=== PATIENT | female | born 1960 | race Caucasian/White ===

== ENCOUNTER 2018-03-07 16:50 | Inpatient (IN) ==
[2018-03-07] MEDS ORDERED: IOPAMIDOL 100 ML BOTTLE IV ONE (16:51)
[2018-03-07] MEDS ORDERED: 0.9 % SODIUM CHLORIDE 1,000 ML IV ONE (17:38)
[2018-03-07 17:57] LABS: Mean Cell Volume 93.8 fL (80.0-100.0); Mean Corpuscular HGB Conc 34.1 g/dL (31.0-36.0); Platelet Count 195 K/mcL (140-440); RBC 4.45 M/mcL (4.00-5.20); Red Cell Distribution Width 13.7 % (11.5-14.5)
[2018-03-07 18:16] LABS: ALT/SGPT 16 U/l (0-40); Albumin 4.4 gm/dL (3.2-5.2); Albumin/Globulin Ratio 1.4 (1.0-2.3); Alkaline Phosphatase 77 U/L (39-117); Blood Urea Nitrogen 11 mg/dl (6-20)
[2018-03-07] MEDS ORDERED: ACETAMINOPHEN 1,000 MG/100 ML BOTTLE IV ONE (18:57)
[2018-03-07] MEDS ORDERED: metroNIDAZOLE 500 MG/100 ML BAG IV ONE (19:00)
[2018-03-07 19:06] LABS: Band Neutrophils % 4 % (0-10); Dohle Bodies FEW (NONE SEEN); Lymphocytes % 4 % (15-49); Monocytes % (Manual) 7 % (1-12); Platelet Estimate NORMAL (NORMAL); RBC Morphology NORMAL (NORMAL); Segmented Neutrophils % 85 % (38-78)
[2018-03-07] MEDS ORDERED: CIPROFLOXACIN 400 MG/200 ML BAG IV ONE (19:11)
[2018-03-07] MEDS ORDERED: ONDANSETRON 4 MG/2 ML VIAL IV PRN (19:14)
[2018-03-07] MEDS ORDERED: metroNIDAZOLE 500 MG/100 ML BAG IV SCH (19:15)
--- NOTE | 2018-03-07 19:21 | Emergency Department Note ---
Abdominal Pain HPI - General Chief Complaint: Abdominal Pain Stated Complaint: Abdominal pain Time Seen by Provider: 03/07/18 17:17 Source: patient Mode of arrival: ambulatory Limitations: no limitations - History of Present Illness HPI Narrative: 57-year-old female presents with lower abdominal pain. Fairly severe. Onset 02 02 this morning. It woke her up and she has not been able to sleep since. She went to [facility] and they are worried about appendicitis so they sent her here. She has had a fever of up to 102 today at home. Did take a laxative to help her have a bowel movement and thought that would give her relief but it has not changed. She is also had chills all day. Positive nausea and decreased appetite. No vomiting. No diarrhea. She has not had anything like this previously. No cough or cold symptoms. No rash. No dysuria or frequency. Nothing seems to make the pain better or worse, it is constant. The blood in her stools or dark tarry stools. - Related Data Home Medications Medication Instructions Recorded Confirmed cholecalciferol (vitamin D3) 5,000 5,000 unit PO QDAY tab 08/20/15 03/07/18 unit tablet diphenhydrAMINE HCL [Benadryl] 50 mg PO DAILYP PRN 09/28/16 03/07/18 Previous Rx's Medication Instructions Recorded hydroxyzine HCl 50 mg tablet 50 mg PO TID-QID PRN #60 tab 05/06/15 diclofenac sodium 75 mg 75 mg PO BID 90 Days #180 tab 05/25/16 tablet,delayed release Aspirin [Ecotrin] 325 mg PO BID #60 tab.ec 10/07/16 HYDROmorphone [Dilaudid] 2 - 4 mg PO Q4-6HP PRN #60 tab 10/07/16 furosemide 20 mg tablet 20 mg PO QDAY #30 tab 12/26/16 risperidone 1 mg tablet 1 mg PO .COMPLEX #60 tab 12/19/17 venlafaxine 75 mg tablet 150 mg PO BID 90 Days #360 tab 12/19/17 lorazepam 0.5 mg tablet 0.5 mg PO QDAY PRN #30 tab 12/28/17 lisinopril 20 mg tablet 20 mg PO QDAY 90 Days #90 tab 01/15/18 trazodone 150 mg tablet 150 mg PO HS #30 tab 02/26/18 Allergies Allergy/AdvReac Type Severity Reaction Status Date / Time acetaminophen [From Vicodin] AdvReac Mild Nausea Verified 03/07/18 19:04 hydrocodone [From Vicodin] AdvReac Mild Nausea Verified 03/07/18 19:04 anti-emetic AdvReac Intermediate Confusion Uncoded 03/07/18 15:48 Review of Systems All systems ED: reviewed and negative except as stated. 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) Depression, major (Chronic 05/21/14) Hypertension, essential (Chronic) Dysfunctional gallbladder (Chronic) Breast cancer (Chronic) Arthritis (Chronic) Anxiety disorder (Chronic) Generalized abdominal or pelvic swelling or mass or lump (Chronic 05/21/14) Past Surgical History (Last Reviewed 03/07/18 @ 15:59 by CLAUDETTE Roque) Total knee replacement status (Acute) History of kidney surgery (Chronic) H/O bilateral mastectomy (Chronic) History of cholecystectomy (Chronic) H/O colonoscopy (Chronic 06/12/14) History of bilateral carpal tunnel release (Chronic) Medical history: Reports: cancer (breast), hypertension, osteoporosis, renal disease Surgical history ED: Reports: other (She did have muscles removed from her abdomen during her breast reconstruction surgery) Psychiatric history: Reports: anxiety, depression - Social History Smoking status: Never smoker Alcohol use: Reports: Occasionally Drug use: Reports: none Physical Exam Limitations: no limitations General appearance: alert, in no apparent distress, other (Flushed) Head: atraumatic, normocephalic, normal inspection Eye: Present: normal appearance. Absent: conjunctival injection ENT: normal exam, mucous membranes moist, TM's normal bilaterally, normal external ear exam Neck: Present: normal inspection, trachea midline. Absent: tenderness, lymphadenopathy Chest: Present: normal inspection, symmetric chest wall rise Respiratory: Present: normal lung sounds bilaterally. Absent: respiratory distress, wheezes, accessory muscle use Cardiovascular: Present: regular rate, normal heart sounds Abdominal: Present: soft, tenderness (He is lower abdominal tenderness. Seems to be a little bit worse right lower quadrant and periumbilical.), normal bowel sounds, other (Obese). Absent: distention, guarding, rebound, mass Extremities: Present: normal inspection. Absent: pedal edema Neurological: Present: alert, oriented X3 Psychiatric: Present: normal affect, normal mood Skin: Present: warm, dry, intact, normal color. Absent: rash Course Course Narrative: I did speak with Dr. Garcia, surgeon on-call at 1900 who agrees to see and admit the patient. I will put in holding orders until he is able to see her. She is updated and is agreeable to stay Vital Signs Temperature 99.7 F H 03/07/18 16:51 Pulse Rate 126 H 03/07/18 16:51 Respiratory Rate 20 03/07/18 16:51 Blood Pressure 135/82 03/07/18 16:51 Pulse Oximetry (%) 95 03/07/18 16:51 Temperature 101.9 F H 03/07/18 18:56 Pulse Rate 111 H 03/07/18 18:46 Respiratory Rate 25 H 03/07/18 18:46 Blood Pressure 156/92 03/07/18 18:46 Pulse Oximetry (%) 95 03/07/18 18:46 Abdominal Pain - Lab Data Lab results reviewed: Yes I reviewed the patient's lab results. Result diagrams: 03/07/18 17:24 03/07/18 17:24 Lab Results 03/07/18 03/07/18 03/07/18 Range/Units 17:24 17:24 17:24 WBC 15.4 H (4.5-11.0) K/mcL RBC 4.45 (4.00-5.20) M/mcL Hgb 14.3 (12.0-15.0) g/dL Hct 41.8 (36.0-48.0) % POC Hct (36.0-48.0) % MCV 93.8 (80.0-100.0) fL MCH 32.0 (26.0-34.0) pg MCHC 34.1 (31.0-36.0) g/dL RDW 13.7 (11.5-14.5) % Plt Count 195 (140-440) K/mcL MPV 8.2 (7.4-10.4) fL Total Counted 200 Seg Neutrophils % 85 H (38-78) % Band Neutrophils % 4 (0-10) % Lymphocytes % 4 L (15-49) % Monocytes % (Manual) 7 (1-12) % WBC Morphology Abnorm A (NORMAL) Reactive Lymphocytes 2 (0-2) % Dohle Bodies Few A (NONE SEEN) Platelet Estimate Normal (NORMAL) RBC Morphology Normal (NORMAL) VBG Lactic Acid 2.4 H (0.5-2.2) mmol/L POC Sodium (133-145) mmol/L Sodium 135 (133-145) mmol/L POC Potassium (3.3-5.1) mmol/L Potassium 4.0 (3.3-5.1) mmol/L POC Chloride (96-108) mmol/L Chloride 96 (96-108) mmol/L Carbon Dioxide 27 (22-30) mmol/L POC Total CO2 (22-30) mmol/L Anion Gap 12.0 (8-16) POC BUN (6-20) mg/dl BUN 11 (6-20) mg/dl Creatinine 0.9 (0.6-1.1) mg/dl POC Creatinine (0.6-1.1) mg/dl GFR Calculation 71 Glucose 132 H (70-105) mg/dL POC Glucose (70-105) mg/dL Calcium 9.3 (8.6-10.4) mg/dl POC WB Ioniz Calcium (1.16-1.32) mmol/L Total Bilirubin 0.7 (0.0-1.0) mg/dL AST 14 (0-37) U/l ALT 16 (0-40) U/l Alkaline Phosphatase 77 (39-117) U/L Total Protein 7.6 (5.9-8.4) gm/dL Albumin 4.4 (3.2-5.2) gm/dL Globulin 3.2 (2.2-3.7) gm/dL Albumin/Globulin Ratio 1.4 (1.0-2.3) 03/07/18 Range/Units 17:44 WBC (4.5-11.0) K/mcL RBC (4.00-5.20) M/mcL Hgb (12.0-15.0) g/dL Hct (36.0-48.0) % POC Hct 41.0 (36.0-48.0) % MCV (80.0-100.0) fL MCH (26.0-34.0) pg MCHC (31.0-36.0) g/dL RDW (11.5-14.5) % Plt Count (140-440) K/mcL MPV (7.4-10.4) fL Total Counted Seg Neutrophils % (38-78) % Band Neutrophils % (0-10) % Lymphocytes % (15-49) % Monocytes % (Manual) (1-12) % WBC Morphology (NORMAL) Reactive Lymphocytes (0-2) % Dohle Bodies (NONE SEEN) Platelet Estimate (NORMAL) RBC Morphology (NORMAL) VBG Lactic Acid (0.5-2.2) mmol/L POC Sodium 137 (133-145) mmol/L Sodium (133-145) mmol/L POC Potassium 4.2 (3.3-5.1) mmol/L Potassium (3.3-5.1) mmol/L POC Chloride 100 (96-108) mmol/L Chloride (96-108) mmol/L Carbon Dioxide (22-30) mmol/L POC Total CO2 27 (22-30) mmol/L Anion Gap (8-16) POC BUN 11 (6-20) mg/dl BUN (6-20) mg/dl Creatinine (0.6-1.1) mg/dl POC Creatinine 0.9 (0.6-1.1) mg/dl GFR Calculation Glucose (70-105) mg/dL POC Glucose 143 H (70-105) mg/dL Calcium (8.6-10.4) mg/dl POC WB Ioniz Calcium 1.09 L (1.16-1.32) mmol/L Total Bilirubin (0.0-1.0) mg/dL AST (0-37) U/l ALT (0-40) U/l Alkaline Phosphatase (39-117) U/L Total Protein (5.9-8.4) gm/dL Albumin (3.2-5.2) gm/dL Globulin (2.2-3.7) gm/dL Albumin/Globulin Ratio (1.0-2.3) - Radiology Data Radiology results reviewed: Yes I reviewed the patient's radiology results. Disposition Pt seen by PANEL SAW OPERATOR/PA only: Yes Clinical Impression: Diverticulitis, Fever, Abdominal pain Disposition: Xfer As Inpt ([facility]) Condition: Fair Referrals: Wilfredo Munroe DO [Primary Care Provider] - Justin Garcia MD [Physician] - Time of Disposition: 19:24
[2018-03-07] MEDS ORDERED: VENLAFAXINE 150 MG CAP.XL.24H PO SCH (21:00)
[2018-03-07] MEDS ORDERED: traZODone HCL 150 MG TABLET PO SCH (21:00)
[2018-03-07] MEDS: 0.9 % SODIUM CHLORIDE 1,000 ML IV SCH (21:15)
[2018-03-07] MEDS: CIPROFLOXACIN 400 MG/200 ML BAG IV SCH (21:34)
[2018-03-07] MEDS ORDERED: traZODone HCL 50 MG TABLET ONE (22:10)
[2018-03-07] MEDS: traZODone HCL 150 MG TABLET PO SCH (22:15)
[2018-03-08] MEDS: HYDROmorphone 2 MG/ML VIAL IV PRN ×3 (01:39→13:37)
[2018-03-08] MEDS: 0.9 % SODIUM CHLORIDE 1,000 ML IV SCH ×4 (04:38→21:46)
--- NOTE | 2018-03-08 08:07 | Cat Scan Report ---
CLINICAL INFORMATION: Reason for Exam:no oral contrast, possible appy, rlq ab pain, fever COMPARISON: None. TECHNIQUE: Following injection of intravenous contrast the patient was scanned during the portal venous phase from the diaphragm through the symphysis pubis. Sagittal and coronal reformats were created.. FINDINGS: The liver and spleen are normal in size and homogeneous. The gallbladder has been removed. The bile ducts are nondilated. The pancreas is normal without evidence of a mass or inflammation. The adrenals are normal symmetric. A 1.3 x 1.3 cm irregularly shaped calculus is present in the lower pole infundibulum of the right kidney. This is not causing hydronephrosis. The right renal pelvis is larger than the left and there are clips at the level of the ureteropelvic junction area there couple small cortical cysts. Mild proximal scarring is present in the right kidney, most notable in the upper pole. The ureters are decompressed. There is a seroma in the midline of the upper abdominal wall, above the level of the umbilicus. It measures 2.6 x 7.6 cm. Numerous diverticula are present in the descending and sigmoid colon. There is acute diverticulitis in the mid sigmoid colon, slightly posterior and superior to the uterus. There is significant stranding of surrounding fat and a small amount of free fluid. No abscess is seen and there is no free intraperitoneal air. No abnormalities detected in the uterus or adnexa. The appendix is noninflamed. No abnormality is seen within the unopacified urinary bladder. Postoperative changes are present following prior spinal fusion at L4-5. IMPRESSION: Acute diverticulitis of the sigmoid colon Fluid collection in the anterior abdominal wall. This is probably a seroma but could be a hematoma. This is likely an abscess. Interpreted and Authenticated by: [employer] 03/08/18
[2018-03-08] MEDS ORDERED: VENLAFAXINE 150 MG CAP.XL.24H PO SCH (09:00)
[2018-03-08] MEDS: VENLAFAXINE 75 MG TABLET PO SCH ×2 (09:19→20:00)
[2018-03-08] MEDS: CIPROFLOXACIN 400 MG/200 ML BAG IV SCH (10:50)
[2018-03-08] MEDS ORDERED: ACETAMINOPHEN 1,000 MG/100 ML BOTTLE IV PRN (14:40)
[2018-03-08] MEDS ORDERED: LORazepam 0.5 MG TABLET PO PRN (17:30)
--- NOTE | 2018-03-08 17:34 | General Surg History&Physical ---
History of Present Illness Patient information: Note initiated : 03/08/18 at 5:32 pm Service Date, if different from initiated Date: [] Patient: Yen Patrick a 57 y/o F admitted on 03/07/18 for Abdominal Pain, Fever, Diverticulitis. Chief Complaint: [] HPI: Ms. Johanna Valente is a 57 year old F who was admitted with diverticulitis. She developed acute onset of severe pelvic pain about 3:45 AM on Monday. She took a laxative and suppository because of possible constipation but the pain persisted. She developed nausea but did not have vomiting. She later developed multiple liquid stools. She did not notice any blood. She was finally seen in minor care because of the pain and was transferred to the emergency room. CT of the abdomen showed diverticulitis. She has not had a prior episode. She is admitted and will be treated with antibiotics. Review of Systems - Gastrointestinal abdominal pain, bloating, change in bowel habits, diarrhea, loose stools, nausea - Genitourinary Genitourinary: difficulty voiding - Musculoskeletal joint swelling - Psychiatric anxiety, depression - Hematologic/Lymphatic no easy bleeding, no easy bruising, no lymphadenopathy - Allergic/Immunologic no tongue swelling, no throat swelling, no uticaria, no wheezing, no lip swelling Past History Past medical history: Right breast cancer Hypertension; anxiety with depression Past surgical history: Bilateral mastectomy with TRAM flap reconstruction Bilateral carpal tunnel release Laparoscopic cholecystectomy Bilateral total knee arthroplasty Lower lumbar laminectomy with fusion Right kidney reconstruction Past family history: Mother age 48 with metastatic colon cancer; she also had breast cancer Sister age 54 with coronary artery disease status post MD Brother age 51 alive and well Past social history: Medically retired Never tobacco use Denies drug use Drinks 4 glasses of wine twice weekly Medications and Allergies Home Medications Medication Instructions Recorded Confirmed Type cholecalciferol (vitamin D3) 5,000 5,000 unit PO QDAY tab 08/20/15 03/07/18 History unit tablet diphenhydrAMINE HCL [Benadryl] 50 mg PO DAILYP PRN 09/28/16 03/07/18 History venlafaxine 75 mg tablet 150 mg PO BID 90 Days #360 tab 12/19/17 03/07/18 Rx lorazepam 0.5 mg tablet 0.5 mg PO QDAY PRN #30 tab 12/28/17 03/07/18 Rx lisinopril 20 mg tablet 20 mg PO QDAY 90 Days #90 tab 01/15/18 03/07/18 Rx trazodone 150 mg tablet 150 mg PO HS #30 tab 02/26/18 03/07/18 Rx risperiDONE [Risperidone] 2 mg PO DAILY 03/07/18 03/07/18 History Ciprofloxacin [Cipro] 500 mg PO BID #30 tab 03/11/18 Rx metroNIDAZOLE [Metronidazole] 500 mg PO Q6 #60 tab 03/11/18 Rx Allergies Allergy/AdvReac Type Severity Reaction Status Date / Time anti-emetic AdvReac Mild Confusion Uncoded 03/07/18 20:36 Exam Temp Pulse Resp BP Pulse Ox 101.5 F H 105 H 20 115/67 92 03/08/18 13:38 03/08/18 11:41 03/08/18 11:41 03/08/18 11:41 03/08/18 11:41 - General physical appearance well developed, well nourished, no distress - Eyes PERRL, normal ocular movement - ENT normal pinna, normal nares, normal mucosa, no hearing loss, no congestion - Head Head exam IM: Present: atraumatic, normocephalic - Neck no masses, no bruits, trachea midline, no lymphadectomy, no venous distension - Cardiovascular Cardiovascular exam IM: Present: normal rate and rhythm - Respiratory normal expansion, normal respiratory effort, clear to percussion, clear to auscultation - Abdomen Abdomen: Present: soft, tender (Tenderness to palpation entire hypogastrium and left lower quadrant; no palpable mass), bowel sounds, guarding. Absent: masses Hernia: Present: none - Genitourinary Present: normal external genitalia - Integumentary Present: no rash, no growths, no abnormal pigmentation - Neurologic Present: normal coordination, normal sensation - Musculoskeletal Present: normal gait, normal posture - Psychiatric Present: oriented to time, oriented to person, oriented to place, speech is normal, memory intact Assessment and Plan (1) Diverticulitis Zosyn 3.375 g IV every 6 Flagyl 500 mg IV every 6 N.p.o. except for ice chips Follow-up CT of abdomen and pelvis with IV contrast in 4 days Status: Acute (2) Depression, major Continue home medications to prevent withdrawal Status: Chronic Qualifiers: (3) Hypertension, essential Hold home medications until blood pressure is stabilized Status: Chronic Comment: BP well controlled with lisinopril 20mg once daily. (4) Anxiety disorder Status: Chronic Comment: 1990 Qualifiers: Anxiety disorder type: generalized anxiety disorder Qualified Code(s): F41.1 - Generalized anxiety disorder
[2018-03-08] MEDS: risperiDONE 1 MG TABLET PO SCH (17:54)
[2018-03-08] MEDS: metroNIDAZOLE 500 MG/100 ML BAG IV SCH (18:07)
[2018-03-08] MEDS: PIPERACILLIN SODIUM/TAZOBACTAM 3.375 GM in DEXTROSE 5% IN WATER 50 ML IV SCH (19:30)
[2018-03-08] MEDS: traZODone HCL 150 MG TABLET PO SCH (20:00)
[2018-03-08] MEDS ORDERED: traZODone HCL 150 MG TABLET PO SCH (21:00)
[2018-03-08] MEDS ORDERED: VENLAFAXINE 75 MG TABLET PO SCH (21:00)
[2018-03-09] MEDS: PIPERACILLIN SODIUM/TAZOBACTAM 3.375 GM in DEXTROSE 5% IN WATER 50 ML IV SCH ×5 (00:46→23:47)
[2018-03-09] MEDS: metroNIDAZOLE 500 MG/100 ML BAG IV SCH ×4 (01:51→19:35)
[2018-03-09 06:25] LABS: Mean Corpuscular HGB Conc 33.3 g/dL (31.0-36.0); Mean Corpuscular Hemoglobin 31.6 pg (26.0-34.0); Platelet Count 156 K/mcL (140-440); RBC 3.54 M/mcL (4.00-5.20); Red Cell Distribution Width 13.5 % (11.5-14.5)
[2018-03-09 06:51] LABS: ALT/SGPT 12 U/l (0-40); Albumin 3.1 gm/dL (3.2-5.2); Alkaline Phosphatase 80 U/L (39-117); Bilirubin,Direct 0.3 mg/dL (0.0-0.3); Blood Urea Nitrogen 8 mg/dl (6-20); Gamma Glutamyl Transpeptidase 58 U/L (5-36); Uric Acid 4.3 mg/dL (2.5-8.0)
[2018-03-09] MEDS: 0.9 % SODIUM CHLORIDE 1,000 ML IV SCH ×3 (07:17→21:43)
[2018-03-09] MEDS: HYDROmorphone 2 MG/ML VIAL IV PRN ×2 (07:38→18:38)
[2018-03-09 08:23] LABS: Band Neutrophils % 2 % (0-10); Eosinophils % (Manual) 2 % (0-7); Lymphocytes % 11 % (15-49); Monocytes % (Manual) 7 % (1-12); Platelet Estimate NORMAL (NORMAL); RBC Morphology NORMAL (NORMAL); Segmented Neutrophils % 78 % (38-78)
[2018-03-09] MEDS ORDERED: risperiDONE 1 MG TABLET PO SCH (09:00)
[2018-03-09] MEDS: VENLAFAXINE 75 MG TABLET PO SCH ×2 (09:24→20:44)
[2018-03-09] MEDS: risperiDONE 1 MG TABLET PO SCH (09:25)
--- NOTE | 2018-03-09 12:30 | General Surgery Progress Note ---
Subjective Patient reports: feels better, pain is less, flatus, no bowel movement, afebrile Narrative: Note initiated : 03/09/18 at 12:28 pm Service Date, if different from initiated Date: [] Patient: Yen Patrick 57 y/o F admitted on 03/07/18 for Abdominal Pain, Fever, Diverticulitis. Chief Complaint: [Patient is doing better. She did not have any elevation of temperature last evening. Her lower abdominal pain persists but is much less intense. She has had flatus but no bowel movement her white blood count is 10.1. Her serum lactate is down 0.7.] Objective Temp Pulse Resp BP Pulse Ox 98.4 F 94 H 14 124/80 92 03/09/18 11:27 03/09/18 11:27 03/09/18 11:27 03/09/18 11:27 03/09/18 11:27 - Additional Data Intake & Output - Last 24 hours: Intake & Output 03/07/18 03/08/18 03/09/18 03/10/18 05:59 05:59 05:59 05:59 Intake Total 2200 / 2200 3580 / 3580 50 / 50 Output Total 1000 / 1000 2800 / 2800 850 / 850 Balance 1200 / 1200 780 / 780 -800 / -800 Weight 262 lb 8 oz 264 lb - General physical appearance well developed, well nourished, no distress - Eyes PERRL, normal ocular movement - ENT normal pinna, normal nares, normal mucosa, no hearing loss, no congestion - Neck no masses, no bruits, trachea midline, no lymphadectomy, no venous distension - Respiratory normal expansion, normal respiratory effort, clear to percussion, clear to auscultation - Cardiovascular Cardiovascular exam: Present: normal rate and rhythm, RRR, +S1, +S2. Absent: JVD - Abdomen tender (Moderate suprapubic tenderness and left lower quadrant tenderness; no mass and no guarding), bowel sounds (present), surgical scars (none), masses ( none) - Integumentary no rash, no growths, no abnormal pigmentation - Neurologic normal coordination, normal sensation - Musculoskeletal normal gait, normal posture - Psychiatric oriented to time, oriented to person, oriented to place, speech is normal, memory intact - Labs 03/09/18 05:00 03/09/18 05:00 Diabetes panel 03/09/18 Range/Units 05:00 Sodium 140 (133-145) mmol/L Potassium 4.0 (3.3-5.1) mmol/L Chloride 104 (96-108) mmol/L Carbon Dioxide 24 (22-30) mmol/L BUN 8 (6-20) mg/dl Creatinine 0.9 (0.6-1.1) mg/dl Glucose 100 (70-105) mg/dL Calcium 8.3 L (8.6-10.4) mg/dl AST 12 (0-37) U/l ALT 12 (0-40) U/l Alkaline Phosphatase 80 (39-117) U/L Total Protein 6.1 (5.9-8.4) gm/dL Albumin 3.1 L (3.2-5.2) gm/dL Triglycerides 52 (<150) mg/dl Calcium panel 03/09/18 Range/Units 05:00 Calcium 8.3 L (8.6-10.4) mg/dl Phosphorus 2.0 L (2.7-4.5) mg/dL Albumin 3.1 L (3.2-5.2) gm/dL Pituitary panel 03/09/18 Range/Units 05:00 Sodium 140 (133-145) mmol/L Potassium 4.0 (3.3-5.1) mmol/L Chloride 104 (96-108) mmol/L Carbon Dioxide 24 (22-30) mmol/L BUN 8 (6-20) mg/dl Creatinine 0.9 (0.6-1.1) mg/dl Glucose 100 (70-105) mg/dL Calcium 8.3 L (8.6-10.4) mg/dl Adrenal panel 03/09/18 Range/Units 05:00 Sodium 140 (133-145) mmol/L Potassium 4.0 (3.3-5.1) mmol/L Chloride 104 (96-108) mmol/L Carbon Dioxide 24 (22-30) mmol/L BUN 8 (6-20) mg/dl Creatinine 0.9 (0.6-1.1) mg/dl Glucose 100 (70-105) mg/dL Calcium 8.3 L (8.6-10.4) mg/dl Total Bilirubin 0.9 (0.0-1.0) mg/dL AST 12 (0-37) U/l ALT 12 (0-40) U/l Alkaline Phosphatase 80 (39-117) U/L Total Protein 6.1 (5.9-8.4) gm/dL Albumin 3.1 L (3.2-5.2) gm/dL Assessment and Plan (1) Diverticulitis Status: Acute Assessment and plan: We will continue present therapy Probable follow-up CT with contrast on Monday Start clear liquid diet Current Visit: Yes (2) Depression, major Status: Chronic Current Visit: No (3) Hypertension, essential Problem details: BP well controlled with lisinopril 20mg once daily. Status: Chronic Current Visit: No (4) Anxiety disorder Problem details: 1990 Status: Chronic Current Visit: No - Time Spent With Patient Total time spent is greater than 50% in coordination of care (as documented) at patient's floor/unit and/or counseling patient:
[2018-03-09] MEDS ORDERED: POTASSIUM PHOSPHATE 40 MEQ in DEXTROSE 5% IN WATER 500 ML IV ONE (12:32)
[2018-03-09] MEDS: traZODone HCL 150 MG TABLET PO SCH (20:44)
[2018-03-10] MEDS: metroNIDAZOLE 500 MG/100 ML BAG IV SCH ×4 (00:44→19:27)
[2018-03-10] MEDS: HYDROmorphone 2 MG/ML VIAL IV PRN ×3 (05:02→20:10)
[2018-03-10] MEDS: PIPERACILLIN SODIUM/TAZOBACTAM 3.375 GM in DEXTROSE 5% IN WATER 50 ML IV SCH ×4 (05:51→23:49)
[2018-03-10 06:07] LABS: Mean Cell Volume 94.8 fL (80.0-100.0); Mean Corpuscular HGB Conc 33.8 g/dL (31.0-36.0); Platelet Count 143 K/mcL (140-440); RBC 3.57 M/mcL (4.00-5.20); Red Cell Distribution Width 13.4 % (11.5-14.5)
[2018-03-10 06:55] LABS: ALT/SGPT 12 U/l (0-40); Albumin 3.2 gm/dL (3.2-5.2); Albumin/Globulin Ratio 1.1 (1.0-2.3); Alkaline Phosphatase 85 U/L (39-117); Bilirubin,Direct < 0.2 mg/dL (0.0-0.3); Blood Urea Nitrogen 7 mg/dl (6-20); Gamma Glutamyl Transpeptidase 76 U/L (5-36); Uric Acid 3.8 mg/dL (2.5-8.0)
[2018-03-10] MEDS: 0.9 % SODIUM CHLORIDE 1,000 ML IV SCH ×4 (07:01→23:45)
[2018-03-10 07:32] LABS: Eosinophils % (Manual) 1 % (0-7); Lymphocytes % 7 % (15-49); Monocytes % (Manual) 4 % (1-12); Myelocytes % 1 % (0-0); Platelet Estimate NORMAL (NORMAL); RBC Morphology NORMAL (NORMAL); Segmented Neutrophils % 87 % (38-78)
[2018-03-10] MEDS: VENLAFAXINE 75 MG TABLET PO SCH ×2 (10:33→20:05)
[2018-03-10] MEDS: risperiDONE 1 MG TABLET PO SCH (10:33)
[2018-03-10] MEDS ORDERED: POTASSIUM PHOSPHATE 40 MEQ in DEXTROSE 5% IN WATER 500 ML IV STA (10:42)
--- NOTE | 2018-03-10 13:51 | General Surgery Progress Note ---
Subjective Patient reports: feels better, pain is less, tolerating liquids well, flatus, no bowel movement, afebrile Narrative: Note initiated : 03/10/18 at 1:49 pm Service Date, if different from initiated Date: [] Patient: Yen Patrick 57 y/o F admitted on 03/07/18 for Abdominal Pain, Fever, Diverticulitis. Chief Complaint: [Patient continues to improve. She has much less abdominal discomfort. She denies nausea. She has had flatus but no bowel movement since . White blood count 7.1 ,hemoglobin 11.4, phosphorus 2.6.] Objective Temp Pulse Resp BP Pulse Ox 98.2 F 96 H 16 127/83 93 03/10/18 08:00 03/10/18 07:15 03/10/18 08:00 03/10/18 08:00 03/10/18 08:00 - Additional Data Intake & Output - Last 24 hours: Intake & Output 03/08/18 03/09/18 03/10/18 03/11/18 05:59 05:59 05:59 05:59 Intake Total 2200 / 2200 3580 / 3580 2329.0909 / 2329.0909 2420 / 2420 Output Total 1000 / 1000 2800 / 2800 3300 / 3300 900 / 900 Balance 1200 / 1200 780 / 780 -970.9091 / -970.9091 1520 / 1520 Weight 262 lb 8 oz 264 lb 265 lb 8 oz - General physical appearance well developed, well nourished, no distress - Eyes PERRL, normal ocular movement - ENT normal pinna, normal nares, normal mucosa, no hearing loss, no congestion - Neck no masses, no bruits, trachea midline, no lymphadectomy, no venous distension - Respiratory normal expansion, normal respiratory effort, clear to auscultation - Cardiovascular Cardiovascular exam: Present: normal rate and rhythm, RRR, +S1, +S2. Absent: JVD, tachycardia - Abdomen tender (Mild tenderness in left lower quadrant and suprapubic area; no masses felt; no guarding noted), bowel sounds (present), surgical scars (none), masses (none) - Integumentary no rash, no growths, no abnormal pigmentation - Neurologic normal coordination, normal sensation - Musculoskeletal normal gait, normal posture - Psychiatric oriented to time, oriented to person, oriented to place, speech is normal, memory intact - Labs 03/10/18 04:30 03/10/18 04:45 Diabetes panel 03/10/18 Range/Units 04:45 Sodium 141 (133-145) mmol/L Potassium 4.1 (3.3-5.1) mmol/L Chloride 105 (96-108) mmol/L Carbon Dioxide 25 (22-30) mmol/L BUN 7 (6-20) mg/dl Creatinine 0.8 (0.6-1.1) mg/dl Glucose 95 (70-105) mg/dL Calcium 8.4 L (8.6-10.4) mg/dl AST 12 (0-37) U/l ALT 12 (0-40) U/l Alkaline Phosphatase 85 (39-117) U/L Total Protein 6.2 (5.9-8.4) gm/dL Albumin 3.2 (3.2-5.2) gm/dL Triglycerides 58 (<150) mg/dl Calcium panel 03/10/18 Range/Units 04:45 Calcium 8.4 L (8.6-10.4) mg/dl Phosphorus 2.6 L (2.7-4.5) mg/dL Albumin 3.2 (3.2-5.2) gm/dL Pituitary panel 03/10/18 Range/Units 04:45 Sodium 141 (133-145) mmol/L Potassium 4.1 (3.3-5.1) mmol/L Chloride 105 (96-108) mmol/L Carbon Dioxide 25 (22-30) mmol/L BUN 7 (6-20) mg/dl Creatinine 0.8 (0.6-1.1) mg/dl Glucose 95 (70-105) mg/dL Calcium 8.4 L (8.6-10.4) mg/dl Adrenal panel 03/10/18 Range/Units 04:45 Sodium 141 (133-145) mmol/L Potassium 4.1 (3.3-5.1) mmol/L Chloride 105 (96-108) mmol/L Carbon Dioxide 25 (22-30) mmol/L BUN 7 (6-20) mg/dl Creatinine 0.8 (0.6-1.1) mg/dl Glucose 95 (70-105) mg/dL Calcium 8.4 L (8.6-10.4) mg/dl Total Bilirubin 0.6 (0.0-1.0) mg/dL AST 12 (0-37) U/l ALT 12 (0-40) U/l Alkaline Phosphatase 85 (39-117) U/L Total Protein 6.2 (5.9-8.4) gm/dL Albumin 3.2 (3.2-5.2) gm/dL Assessment and Plan (1) Diverticulitis Status: Acute Assessment and plan: We will continue present therapy follow-up CT with contrast on Monday full liquid diet Current Visit: Yes (2) Depression, major Status: Chronic Assessment and plan: Stable on home medications Current Visit: No (3) Hypertension, essential Problem details: BP well controlled with lisinopril 20mg once daily. Status: Chronic Current Visit: No (4) Anxiety disorder Problem details: 1990 Status: Chronic Assessment and plan: Stable on baseline medications Current Visit: No - Time Spent With Patient Total time spent is greater than 50% in coordination of care (as documented) at patient's floor/unit and/or counseling patient:
[2018-03-10] MEDS ORDERED: POTASSIUM PHOSPHATE 40 MEQ in DEXTROSE 5% IN WATER 500 ML IV ONE (18:00)
[2018-03-10] MEDS: traZODone HCL 150 MG TABLET PO SCH (20:06)
[2018-03-11] MEDS: metroNIDAZOLE 500 MG/100 ML BAG IV SCH ×3 (00:32→12:43)
[2018-03-11 05:49] LABS: Mean Cell Volume 93.7 fL (80.0-100.0); Mean Corpuscular HGB Conc 34.2 g/dL (31.0-36.0); Mean Corpuscular Hemoglobin 32.1 pg (26.0-34.0); Platelet Count 198 K/mcL (140-440); RBC 3.42 M/mcL (4.00-5.20); Red Cell Distribution Width 13.3 % (11.5-14.5)
[2018-03-11] MEDS: PIPERACILLIN SODIUM/TAZOBACTAM 3.375 GM in DEXTROSE 5% IN WATER 50 ML IV SCH ×2 (06:11→11:59)
[2018-03-11 06:45] LABS: Band Neutrophils % 1 % (0-10); Eosinophils % (Manual) 4 % (0-7); Lymphocytes % 18 % (15-49); Monocytes % (Manual) 8 % (1-12); Platelet Estimate NORMAL (NORMAL); RBC Morphology NORMAL (NORMAL); Segmented Neutrophils % 69 % (38-78)
[2018-03-11 07:21] LABS: ALT/SGPT 12 U/l (0-40); Albumin 3.1 gm/dL (3.2-5.2); Alkaline Phosphatase 79 U/L (39-117); Bilirubin,Direct < 0.2 mg/dL (0.0-0.3); Blood Urea Nitrogen 5 mg/dl (6-20); Gamma Glutamyl Transpeptidase 75 U/L (5-36); Uric Acid 3.5 mg/dL (2.5-8.0)
[2018-03-11] MEDS: 0.9 % SODIUM CHLORIDE 1,000 ML IV SCH ×2 (07:41→14:26)
[2018-03-11] MEDS: risperiDONE 1 MG TABLET PO SCH (09:29)
[2018-03-11] MEDS: VENLAFAXINE 75 MG TABLET PO SCH (09:29)
--- NOTE | 2018-03-11 10:58 | Cat Scan Report ---
CLINICAL INFORMATION: Reason for Exam:Follow-up of sigmoid diverticulitis COMPARISON: 03/07/18 TECHNIQUE: Following oral contrast and the injection of intravenous contrast the patient was scanned during the portal venous phase from the diaphragm through the symphysis pubis. Sagittal and coronal reformats were created.. FINDINGS: The liver, spleen pancreas and adrenals are normal. There is a 1.3 cm calculus in the lower pole the right kidney. Left kidney is normal. A stable seroma or subacute hematoma is present in the midline of the anterior abdominal wall. There is acute diverticulitis of the distal sigmoid colon. The greatest inflammation is posterior to the uterus and contiguous with the cervix. There is no evidence of perforation and no abscess has formed. The small amount of free fluid seen in this location on the prior study has now nearly completely resolved. No bowel obstruction is present. Oral contrast passed through this inflamed segment of colon into the rectum without obstruction. IMPRESSION: Acute diverticulitis of the distal sigmoid colon. There has been slight improvement compared with recent study Interpreted and Authenticated by: [employer] 03/11/18
[2018-03-11] MEDS ORDERED: IOPAMIDOL 100 ML BOTTLE IV ONE (12:38)
--- NOTE | 2018-03-11 13:04 | Discharge Summary ---
Providers - Providers Patient information: Note initiated : 03/11/18 at 1:04 pm Service Date, if different from initiated Date: [] Patient: Yen Patrick 57 y/o F admitted on 03/07/18 for Abdominal Pain, Fever, Diverticulitis. Chief Complaint: [] Date of admission: 03/07/18 Discharge date: 03/11/18 Attending physician: Justin Garcia Hospitalization Hospital course: 57-year-old female who developed a pelvic pain about 3:45 AM on 07 March. Because of the fullness she felt like she was constipated so she took a suppository and laxative but the pain persisted. She developed nausea but no vomiting. She later had liquid stool. She was seen in the [facility] care facility and transferred to the emergency room where CT showed diverticulitis. She has not had previous episodes. She was admitted with acute diverticulitis. She has been treated and has gradually improved. Her white blood count returned to normal. She started having liquid bowel movements. Follow-up CT shows improvement in the diverticulitis and resolution of the free fluid that was present. She is stable now except for mild discomfort and is discharged home in satisfactory condition. Discharge diagnosis: Acute diverticulitis Secondary discharge diagnosis: Hypertension Anxiety with depression Right breast carcinoma status post bilateral mastectomy with TRAM flaps Reason for admission: Acute diverticulitis Pertinent studies/significant findings: CT of abdomen and pelvis with contrast 2 Complications: None Exam Temp Pulse Resp BP Pulse Ox 98.1 F 71 16 133/81 90 03/11/18 12:00 03/11/18 04:00 03/11/18 12:00 03/11/18 12:00 03/11/18 12:00 - General physical appearance well developed, well nourished, no distress - Eyes PERRL, normal ocular movement - ENT normal pinna, normal nares, normal mucosa, no hearing loss, no congestion - Head Head exam IM: Present: atraumatic, normal inspection, normocephalic - Neck no masses, no bruits, trachea midline, no lymphadectomy, no venous distension - Cardiovascular Cardiovascular exam IM: Present: normal rate and rhythm, RRR, +S1, +S2. Absent : JVD, tachycardia - Respiratory normal expansion, normal respiratory effort, clear to percussion, clear to auscultation - Abdomen Abdomen: Present: soft, tender (Mild tenderness and left lower quadrant and suprapubic area), bowel sounds Hernia: Present: none - Genitourinary Present: normal external genitalia - Integumentary Present: no rash, no growths, no abnormal pigmentation - Neurologic Present: normal coordination, normal sensation - Musculoskeletal Present: normal gait, normal posture - Psychiatric Present: oriented to time, oriented to person, oriented to place, speech is normal, memory intact Discharge Plan - Patient/Caregiver Discharge Instructions Activity: increase activity as tolerated Diet: Regular Diet Prescriptions: Ciprofloxacin [Cipro] 500 mg PO BID #30 tab metroNIDAZOLE [Metronidazole] 500 mg PO Q6 #60 tab - Follow up Plan Follow up with: Wilfredo Munroe DO [Primary Care Provider] - Justin Garcia MD [Physician] - Disposition: Home, Self-Care Prognosis: Good Rehab Potential: Good I certify that the patient requires SNF services.: No Overall status at discharge: patient is not back to baseline Pending Studies Resuscitation Status Full Code Diet Full Liquid Diet Start Sat March 10 1355 Hydromorphone HCl (Dilaudid) 1 mg IV Q2HP PRN PRN Reason: PAIN LEVEL > 6 Last Admin: 03/10/18 20:10 Dose: 1 mg Admin: 03/10/18 13:55 Dose: 1 mg Admin: 03/10/18 05:02 Dose: 1 mg Admin: 03/09/18 18:38 Dose: 1 mg Admin: 03/09/18 07:38 Dose: 1 mg Admin: 03/08/18 13:37 Dose: 0.5 mg Admin: 03/08/18 07:03 Dose: 1 mg Admin: 03/08/18 01:39 Dose: 1 mg Sodium Chloride (Sodium Chloride 0.9%) 1,000 mls @ 150 mls/hr IV .Q6H40M MOSES Last Admin: 03/11/18 07:41 Dose: Not Given Admin: 03/10/18 23:45 Dose: 150 mls/hr Admin: 03/10/18 18:31 Dose: Not Given Admin: 03/10/18 18:30 Dose: Not Given Infusion: 03/10/18 13:46 Dose: 150 mls/hr Infusion: 03/10/18 10:34 Dose: 150 mls/hr Infusion: 03/10/18 10:29 Dose: 0 mls/hr Admin: 03/10/18 07:01 Dose: 150 mls/hr Infusion: 03/10/18 06:52 Dose: 0 mls/hr Admin: 03/09/18 21:43 Dose: 150 mls/hr Admin: 03/09/18 19:36 Dose: Not Given Infusion: 03/09/18 13:58 Dose: 150 mls/hr Admin: 03/09/18 07:17 Dose: 150 mls/hr Infusion: 03/09/18 04:27 Dose: 150 mls/hr Admin: 03/08/18 21:46 Dose: 150 mls/hr Infusion: 03/08/18 21:46 Dose: 150 mls/hr Admin: 03/08/18 16:14 Dose: 150 mls/hr Infusion: 03/08/18 11:19 Dose: 0 mls/hr Admin: 03/08/18 09:06 Dose: Not Given Admin: 03/08/18 04:38 Dose: 150 mls/hr Infusion: 03/08/18 03:56 Dose: 150 mls/hr Admin: 03/07/18 21:15 Dose: 150 mls/hr Acetaminophen (Ofirmev) 1,000 mg in 100 mls @ 200 mls/hr IV Q6HP PRN PRN Reason: PAIN/FEVER > 101 Last Infusion: 03/08/18 16:29 Dose: 0 mls/hr Admin: 03/08/18 16:14 Dose: 200 mls/hr Metronidazole (Flagyl) 500 mg in 100 mls @ 100 mls/hr IV Q6H MOSES Last Admin: 03/11/18 12:43 Dose: 100 mls/hr Infusion: 03/11/18 08:40 Dose: 0 mls/hr Admin: 03/11/18 07:40 Dose: 100 mls/hr Infusion: 03/11/18 01:32 Dose: 100 mls/hr Admin: 03/11/18 00:32 Dose: 100 mls/hr Infusion: 03/10/18 20:27 Dose: 100 mls/hr Admin: 03/10/18 19:27 Dose: 100 mls/hr Infusion: 03/10/18 15:44 Dose: 0 mls/hr Admin: 03/10/18 13:56 Dose: 100 mls/hr Infusion: 03/10/18 10:34 Dose: 0 mls/hr Admin: 03/10/18 07:02 Dose: 100 mls/hr Infusion: 03/10/18 06:52 Dose: 0 mls/hr Admin: 03/10/18 00:44 Dose: 100 mls/hr Infusion: 03/09/18 20:35 Dose: 100 mls/hr Admin: 03/09/18 19:35 Dose: 100 mls/hr Admin: 03/09/18 17:03 Dose: Infusion: 03/09/18 09:30 Dose: 0 mls/hr Admin: 03/09/18 08:28 Dose: 100 mls/hr Infusion: 03/09/18 03:00 Dose: 0 mls/hr Admin: 03/09/18 01:51 Dose: 100 mls/hr Infusion: 03/08/18 19:07 Dose: 100 mls/hr Admin: 03/08/18 18:07 Dose: 100 mls/hr Piperacillin Sod/Tazobactam (Sod 3.375 gm/ Dextrose) 50 mls @ 100 mls/hr IV Q6H MOSES Last Admin: 03/11/18 11:59 Dose: 100 mls/hr Infusion: 03/11/18 06:41 Dose: 0 mls/hr Admin: 03/11/18 06:11 Dose: 100 mls/hr Infusion: 03/11/18 00:19 Dose: 100 mls/hr Admin: 03/10/18 23:49 Dose: 100 mls/hr Infusion: 03/10/18 19:08 Dose: 100 mls/hr Admin: 03/10/18 18:38 Dose: 100 mls/hr Infusion: 03/10/18 15:44 Dose: 0 mls/hr Admin: 03/10/18 13:00 Dose: 100 mls/hr Infusion: 03/10/18 06:52 Dose: 0 mls/hr Admin: 03/10/18 05:51 Dose: 100 mls/hr Infusion: 03/10/18 00:17 Dose: 100 mls/hr Admin: 03/09/18 23:47 Dose: 100 mls/hr Infusion: 03/09/18 18:26 Dose: 100 mls/hr Admin: 03/09/18 17:56 Dose: 100 mls/hr Infusion: 03/09/18 12:25 Dose: 0 mls/hr Admin: 03/09/18 11:49 Dose: 100 mls/hr Infusion: 03/09/18 06:18 Dose: 100 mls/hr Admin: 03/09/18 05:48 Dose: 100 mls/hr Infusion: 03/09/18 01:16 Dose: 100 mls/hr Admin: 03/09/18 00:46 Dose: 100 mls/hr Infusion: 03/08/18 20:00 Dose: 100 mls/hr Admin: 03/08/18 19:30 Dose: 100 mls/hr Risperidone (Risperdal) 2 mg PO DAILY [facility] Last Admin: 03/11/18 09:29 Dose: 2 mg Admin: 03/10/18 10:33 Dose: 2 mg Admin: 03/09/18 09:25 Dose: 2 mg Admin: 03/08/18 17:54 Dose: 2 mg Trazodone HCl (Desyrel) 150 mg PO HS [facility] Last Admin: 03/10/18 20:06 Dose: 150 mg Admin: 03/09/18 20:44 Dose: 150 mg Admin: 03/08/18 20:00 Dose: 150 mg Admin: 03/07/18 22:15 Dose: Not Given Venlafaxine HCl (Effexor) 150 mg PO BID [facility] Last Admin: 03/11/18 09:29 Dose: 150 mg Admin: 03/10/18 20:05 Dose: 150 mg Admin: 03/10/18 10:33 Dose: 150 mg Admin: 03/09/18 20:44 Dose: 150 mg Admin: 03/09/18 09:24 Dose: 150 mg Admin: 03/08/18 20:00 Dose: 150 mg Admin: 03/08/18 09:19 Dose: 150 mg Shift Summary 03/11/18 05:09 Shift Summary by Brandy Soares Slept well tonight. Up ad isabella to BR, voiding well. Has had 7# wt gain since admit, intake has been much more than output. Has had pain meds just once tonight. tolerating full liquid diet w/o nausea or increased pain. Hoping to go home today. Initialized on 03/11/18 05:09 - END OF NOTE
== END 2018-03-11 14:10 | disposition home or self-care (01) | DRG 392 ==
LOC: ED 16:50 → MEDSUR 20:15
PROVIDERS: ADMIT Family Medicine Adult Medicine; ATTEND Family Medicine Adult Medicine

== ENCOUNTER 2019-03-27 00:08 | Inpatient (IN) ==
[2019-03-27] MEDS ORDERED: IOPAMIDOL 100 ML BOTTLE IV ONE (00:09)
--- NOTE | 2019-03-27 01:00 | Emergency Department Note ---
Abdominal Pain HPI - General Chief Complaint: Constipation Stated Complaint: constipation and nausea Time Seen by Provider: 03/27/19 00:49 Mode of arrival: EMS - History of Present Illness HPI Narrative: This pleasant 58-year-old with a history of ovarian cancer comes with recently attempted hysterectomy and colostomy reversal but was only partially successful with single oophorectomy due to adhesions and infections per patient's report. This was Dr. Smith in [place]. Since then she has been taking senna 2 pills twice daily. She had very little stool but she was passing gas and on the was able to be discharged. She is tried to stop her pain medications when she was having slowed bowel output but has not been able to. She also has been taking milk of magnesia. She became distended and uncomfortable today with pain 5-6/10 and vomited once in the evening. She has passed a little gas this afternoon. REVIEW OF SYSTEMS: No fevers, chills, sweats No chest pain No shortness of breath Some blood in the bag. Her ostomy did swell some after surgery and with the change of the ostomy and the swelling she believes that this may have irritated causing the blood into the back. Recently has been on an antibiotic for a UTI (she told nursing staff this) Denies dizziness. - Related Data Home Medications Medication Instructions Recorded Confirmed Ergocalciferol (Vitamin D2) 5,000 unit PO DAILY 10/10/18 01/23/19 [Vitamin D2] Haloperidol [Haldol] 1 mg PO BID 10/10/18 01/23/19 Metoclopramide [Reglan] 1 - 2 tab PO Q6HP PRN 10/10/18 01/23/19 Ondansetron [Zofran ODT] 8 mg SL Q4HP PRN 10/10/18 01/23/19 Prochlorperazine Maleate 5 mg PO Q4HP PRN 10/10/18 01/23/19 [Compazine] Previous Rx's Medication Instructions Recorded lorazepam 1 mg tablet 1 mg PO QDAY PRN #90 tab 10/31/18 hydromorphone 2 mg tablet 2 mg PO Q4-6H PRN #120 tab 01/23/19 trazodone 150 mg tablet 150 mg PO DAILY #90 tab 02/01/19 metoprolol tartrate 25 mg tablet 25 mg PO BID #180 tab 02/11/19 venlafaxine 75 mg tablet 150 mg PO BID #360 tab 02/13/19 Allergies Allergy/AdvReac Type Severity Reaction Status Date / Time promethazine [From Phenergan] Allergy Unknown Unknown Verified 01/23/19 11:30 acetaminophen [From Vicodin] AdvReac Mild Nausea Verified 01/23/19 11:30 hydrocodone [From Vicodin] AdvReac Mild Nausea Verified 01/23/19 11:30 Abdominal Pain PMH - Past Medical History FOR[facility]LY [facility], 1928–1983 Narrative: Medical History (Last Updated 03/27/19 @ 02:11 by Roscoe Verdugo DO) Breast cancer (Chronic) Obesity, morbid (Chronic 05/21/14) Diabetes (Chronic) Prediabetes (Chronic 06/04/14) Hypertension, essential (Chronic) Hypoxia, sleep related (Chronic) Ovarian cancer (Chronic) Malignant pleural effusion (Chronic) Diverticular disease of large intestine with complication (Chronic) ATN (acute tubular necrosis) (Resolved) Peritoneal carcinomatosis (Chronic) Knee osteoarthritis (Chronic) Omental infarction (Resolved) Septic shock (Resolved) Constipation (Resolved) Witnessed apneic spells (Chronic) Diverticulitis (Resolved) Osteoarthritis (Chronic) Urinary, incontinence, stress female (Chronic) Tremor (Chronic 09/04/14) Sleep disorder, nonorganic (Chronic) Sciatica (Chronic 12/24/14) Nocturia (Chronic) 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) Depression, major (Chronic 05/21/14) Arthritis (Chronic) Anxiety disorder (Chronic) Fungus present in urine (Resolved) SANDY (acute kidney injury) (Resolved) Bacterial peritonitis (Resolved) Diverticulosis (Resolved) Dysfunctional gallbladder (Resolved) Generalized abdominal or pelvic swelling or mass or lump (Resolved 05/21/14) Ovarian mass, left (Resolved) Physical exam (Resolved) Pleural effusion (Resolved) Postoperative hypoxia (Resolved) Recurrent right pleural effusion (Resolved) Renal failure (Resolved) Vitamin D deficiency (Resolved) Wound infection (Resolved) Past Surgical History (Last Updated 03/27/19 @ 02:11 by Roscoe Verdugo DO) H/O bilateral mastectomy (Resolved) H/O colonoscopy (Resolved 06/12/14) History of bilateral carpal tunnel release (Resolved) History of cholecystectomy (Resolved) History of kidney surgery (Resolved) Total knee replacement status (Resolved) Family History (Last Reviewed 02/05/19 @ 08:52 by Wilfredo Munroe DO) Unknown Malignant neoplasm of breast Malignant neoplasm of colon Malignant neoplasm of lung Myocardial Infarction Malignant neoplasm of prostate Mother Cerebrovascular accident (CVA) Sister Diabetes mellitus Grandmother Diabetes mellitus Arthritis Medical history: Reports: cancer (Remote history of breast cancer, current history of ovarian cancer), hypertension, obesity, osteoporosis, renal disease, other (Diverticulitis). Denies: CAD (coronary artery disease), CVA, DVT, DM, hyperlipidemia, thyroid disease, TIA Psychiatric history: Reports: anxiety, depression Family history: Reports: other (Sister with myocardial infarction at age 54. Grandmother with myocardial infarction in her 50s. Mother with CVA at age 39.) - Social History Smoking status: Never smoker Alcohol use: Reports: Occasionally (4 glasses of wine about 2 nights a week.) Drug use: Reports: none. Denies: marijuana Physical Exam Limitations: no limitations General appearance: alert, in no apparent distress Head: atraumatic, normocephalic Eye: Present: EOMI ENT: normal oropharynx, mucous membranes moist Neck: Present: trachea midline. Absent: lymphadenopathy, thyromegaly Chest: Present: symmetric chest wall rise Respiratory: Present: normal lung sounds bilaterally. Absent: respiratory distress, wheezes, stridor, accessory muscle use, prolonged expiratory phase Cardiovascular: Present: regular rate, normal rhythm. Absent: systolic murmur, diastolic murmur Abdominal: Present: soft, distention (Moderate to severe but hard to tell due to abdominal obesity.), other (Mild weepiness in the umbilicus that appears to be more transudative and exudative, i.e. linh-pink and clear. The incision line is well approximated with zafar vertically and is without erythema, exudate, induration, elevation, or warmth.). Absent: tenderness, guarding, rebound, rigidity, organomegaly, mass Extremities: Absent: pedal edema, pretibial edema, calf tenderness Back: Absent: CVA tenderness (R), CVA tenderness (L), spinous process tenderness Neurological: Present: alert, oriented X3 Psychiatric: Present: normal affect, normal mood Skin: Present: warm, dry Course Vital Signs Temperature 99.0 F 03/27/19 00:10 Pulse Rate 121 H 03/27/19 00:10 Respiratory Rate 18 03/27/19 00:10 Blood Pressure 128/101 03/27/19 00:10 Pulse Oximetry (%) 93 03/27/19 00:10 Temperature 99.0 F 03/27/19 00:10 Pulse Rate 99 H 03/27/19 04:17 Respiratory Rate 18 03/27/19 00:10 Blood Pressure 145/83 03/27/19 04:17 Pulse Oximetry (%) 94 03/27/19 04:17 Abdominal Pain - MDM Narrative Medical decision making narrative: 12:39 AM -recent laparotomy unsuccessful for attempted hysterectomy and bilatera l oophorectomy (single oophorectomy successful) now with limited output and nausea, distention and abdominal discomfort. Also some vomiting. At risk for additional adhesions and/or bowel obstruction. We will do labs and CT scan abdomen. Labs came back with anemia of 9.8/29.7. Her CO2 is elevated at 35. CRP is 9.9. AST, ALT are 15, 16. CT scan demonstrates "new moderate grade small bowel obstruction with transition point being an enlarging parastomal hernia containing short segment of thickened incarcerated small bowel to severe gas and fluid distention of the stomach." 4:12 AM - I spoke with Dr. Farhan Garcia, [facility] who is on-call for Dr. Recinos, who is her previous surgeon for the ostomy and whom she requests me to contact. Dr. Garcia does not accept care for this patient considering having a gynecologic oncologic surgeon, etc. 4:25 AM - I had discussed these things with patient and she prefers to stay locally if possible. I will speak with Dr. Singh Garcia, general surgeon at [facility]. Dr. Garcia accepts this patient's care and request hospitalist to consult. Nasogastric tube indicated as well as some IV fluids, keep her n.p.o., pain control, nausea control. - Lab Data Lab results reviewed: Yes I reviewed the patient's lab results. Result diagrams: 03/27/19 00:59 03/27/19 00:59 Lab Results 03/27/19 03/27/19 Range/Units 00:59 00:59 WBC 8.0 (4.5-11.0) K/mcL RBC 3.17 L (4.00-5.20) M/mcL Hgb 9.8 L (12.0-15.0) g/dL Hct 29.7 L (36.0-48.0) % POC Hct 30.0 L (36.0-48.0) % MCV 93.6 (80.0-100.0) fL MCH 30.8 (26.0-34.0) pg MCHC 32.9 (31.0-36.0) g/dL RDW 17.7 H (11.5-14.5) % Plt Count 273 (140-440) K/mcL MPV 7.4 (7.4-10.4) fL Gran % 82.9 H (38.0-78.0) % Lymph % (Auto) 7.7 L (15.5-49.0) % Fountain % (Auto) 7.9 (1.0-12.0) % Eos % (Auto) 1.5 (0.0-7.0) % Baso % (Auto) 0 (0.0-2.0) % Gran # 6.6 (1.8-8.0) K/mcL Lymph # (Auto) 0.6 L (1.5-4.8) K/mcL Fountain # (Auto) 0.6 (0.1-0.9) K/mcL Eos # (Auto) 0.1 (0.0-0.7) K/mcL Baso # (Auto) 0 (0.0-0.3) K/mcL POC Sodium 137 (133-145) mmol/L Sodium 139 (133-145) mmol/L POC Potassium 3.8 (3.3-5.1) mmol/L Potassium 3.9 (3.3-5.1) mmol/L POC Chloride 90 L (96-108) mmol/L Chloride 92 L (96-108) mmol/L Carbon Dioxide 35 H (22-30) mmol/L POC Total CO2 37 H (22-30) mmol/L Anion Gap 12.0 (8-16) POC BUN 6 (6-20) mg/dl BUN 7 (6-20) mg/dl Creatinine 0.9 (0.6-1.1) mg/dl POC Creatinine 0.9 (0.6-1.1) mg/dl GFR Calculation 70 Glucose 137 H (70-105) mg/dL POC Glucose 139 H (70-105) mg/dL Calcium 9.3 (8.6-10.4) mg/dl POC WB Ioniz Calcium 1.12 L (1.16-1.32) mmol/L Total Bilirubin 0.3 (0.0-1.0) mg/dL AST 15 (0-37) U/l ALT 16 (0-40) U/l Alkaline Phosphatase 123 H (39-117) U/L C-Reactive Protein 9.9 H (0.0-0.8) mg/dl Total Protein 6.7 (5.9-8.4) gm/dL Albumin 2.9 L (3.2-5.2) gm/dL Globulin 3.8 H (2.2-3.7) gm/dL Albumin/Globulin Ratio 0.8 L (1.0-2.3) - Radiology Data Radiology results reviewed: Yes I reviewed the patient's radiology results. Disposition Pt seen by [facility]ER/PA only: No Clinical Impression: Small bowel obstruction, S/P laparotomy, Elevated carbon dioxide level Nausea & vomiting Qualifiers: Vomiting type: unspecified Vomiting Intractability: non-intractable Qualified Code(s): R11.2 - Nausea with vomiting, unspecified Disposition: Xfer As Inpt ([facility]) Condition: Fair Referrals: Wilfredo Munroe DO [Primary Care Provider] -
[2019-03-27 01:13] LABS: POC Blood Urea Nitrogen 6 mg/dl (6-20); POC CO2 37 mmol/L (22-30); POC Calcium, Ionized 1.12 mmol/L (1.16-1.32); POC Chloride 90 mmol/L (96-108); POC Creatinine 0.9 mg/dl (0.6-1.1); POC Glucose, Random 139 mg/dL (70-105); POC Potassium 3.8 mmol/L (3.3-5.1); POC Sodium 137 mmol/L (133-145)
[2019-03-27] MEDS ORDERED: ONDANSETRON 4 MG/2 ML VIAL IV ONE (01:22)
[2019-03-27 01:51] LABS: Basophils # (Auto) 0 K/mcL (0.0-0.3); Basophils % (Auto) 0 % (0.0-2.0); Eosinophils # (Auto) 0.1 K/mcL (0.0-0.7); Eosinophils % (Auto) 1.5 % (0.0-7.0); Granulocytes % (Auto) 82.9 % (38.0-78.0); Hematocrit 29.7 % (36.0-48.0); Hemoglobin 9.8 g/dL (12.0-15.0); Lymphocytes # (Auto) 0.6 K/mcL (1.5-4.8); Lymphocytes % (Auto) 7.7 % (15.5-49.0); Mean Cell Volume 93.6 fL (80.0-100.0); Mean Corpuscular HGB Conc 32.9 g/dL (31.0-36.0); Mean Platelet Volume 7.4 fL (7.4-10.4); Monocytes # (Auto) 0.6 K/mcL (0.1-0.9); Monocytes % (Auto) 7.9 % (1.0-12.0); Platelet Count 273 K/mcL (140-440); RBC 3.17 M/mcL (4.00-5.20); Red Cell Distribution Width 17.7 % (11.5-14.5)
[2019-03-27 02:11] LABS: ALT/SGPT 16 U/l (0-40); AST/SGOT 15 U/l (0-37); Albumin 2.9 gm/dL (3.2-5.2); Albumin/Globulin Ratio 0.8 (1.0-2.3); Alkaline Phosphatase 123 U/L (39-117); Bilirubin,Total 0.3 mg/dL (0.0-1.0); Blood Urea Nitrogen 7 mg/dl (6-20); C-Reactive Protein 9.9 mg/dl (0.0-0.8); Calcium 9.3 mg/dl (8.6-10.4); Carbon Dioxide 35 mmol/L (22-30); Chloride 92 mmol/L (96-108); Globulin 3.8 gm/dL (2.2-3.7); Glomerular Filtration Rate 70; Glucose 137 mg/dL (70-105); Potassium 3.9 mmol/L (3.3-5.1); Sodium 139 mmol/L (133-145)
[2019-03-27] MEDS ORDERED: PROCHLORPERAZINE 10 MG/2 ML VIAL IV ONE (03:16)
[2019-03-27] MEDS ORDERED: PROMETHAZINE 25 MG/ML VIAL IV PRN ×2 (04:54→10:50)
[2019-03-27] MEDS ORDERED: PROCHLORPERAZINE 10 MG/2 ML VIAL IV PRN (05:03)
[2019-03-27] MEDS: 0.9 % SODIUM CHLORIDE 1,000 ML IV SCH ×4 (06:30→21:12)
--- NOTE | 2019-03-27 07:06 | Cat Scan Report ---
CLINICAL INFORMATION: Five days post laparotomy. History of ovarian cancer - abdominal pain and vomiting COMPARISON: 10/20/[address] TECHNIQUE: Following enteric contrast, 80 cc of Isovue-300 were injected intravenously, and 60 seconds later, 0.625 mm helical slices were obtained from the mid heart through the subtrochanteric regions. Following reconstruction, 2.5 mm sagittal, coronal and axial reformatted images were processed and reviewed at bone, lung and soft tissue windows. Five minutes later, 0.625 mm helical slices were obtained from the mid heart through the kidneys and viewed at soft tissue windows.The exam was performed using radiation dose optimization techniques including, but not limited to, automated exposure control, adjustment of the mA and/or kV according to patient size and use of iterative reconstruction technique. FINDINGS: Lung bases show small right and tiny left pleural effusion which are new. Small pericardial effusion is also new. Visualized heart is normal in size. There is scattered atelectasis in the lower lobes - most prominent posterior right lower lobe. Images through the abdomen show minimal fatty change of the liver, but no metastases or hepatic lesions. The gallbladder is surgically absent. Intrahepatic and common bile ducts are normal caliber: CBD is 5 mm. The left kidney, both adrenal glands, spleen, pancreas and aorta are unremarkable. A double pigtail right ureteral stent is properly positioned and functional - no evidence of hydronephrosis. 15 mm stone remains in the right renal pelvis. No other renal abnormality. Images through the pelvis show the urinary bladder is collapsed and demonstrates mild wall thickening. Distal ureteral stent satisfactory position. Hysterectomy/oophorectomy, mesenteric resection, omentectomy, partial sigmoidectomy with colostomy of the descending colon in the left lower quadrant and Valdez's pouch creation noted. A large parastomal hernia hernia has increased since previous study now spanning 11 cm. The hernia contains moderate entrapped ascites and a segment of distal small bowel resulting in high-grade obstruction. The stomach and proximal small bowel are moderately dilated to the hernia reentry point. The small bowel, distal to the transition point is markedly decompressed. Residual colon and appendix are grossly normal. Small/moderate ascites as increased since previous study. Bone windows show no osseous metastases. L4-5 anterior/posterior fusion changes appreciated. Severe L3-4 central canal stenosis with moderate IV foraminal narrowing due to degeneration. IMPRESSION: 1. High-grade small bowel obstruction: A segment of small bowel is incarcerated within a left lower quadrant peristomal hernia. There is also moderate ascites within the hernia sac. [id number] ascites has increased throughout the abdomen and pelvis which could indicate third spacing related to bowel obstruction versus progression in ovarian carcinomatosis. 2. Right double pigtail ureteral stent placed since prior study successfully drains the right kidney - no evidence of hydronephrosis. A 15 mm nonobstructing stone remains in the right renal pelvis. 3. Small right and tiny left pleural fusions and small pericardial effusion - all new 4. Extensive postsurgical changes including hysterectomy/oophorectomy, mesenteric resection, omentectomy, partial sigmoidectomy with colostomy of the descending colon in the left lower quadrant and Valdez's pouch creation. 5. 10 x 1.5 in shape fluid collection in the rectus sheath with small amount of gas has decreased in size from the previous CT. This most likely a seroma but infection is not excluded. 6. Severe L3-4 central canal and lateral recess stenosis due to degeneration. No change Interpreted and Authenticated by: Wilfredo Ahn 03/27/19
--- NOTE | 2019-03-27 08:01 | XRay Report ---
CLINICAL INFORMATION: Verify NG placement COMPARISON: None. FINDINGS: NG tube overlies the gastric body. Stomach and multiple loops small bowel are moderately dilated compatible distal small bowel obstruction. No free air IMPRESSION: NG tube overlying the gastric body. Distal small bowel obstruction pattern. Interpreted and Authenticated by: Wilfredo Ahn 03/27/19
[2019-03-27] MEDS ORDERED: ONDANSETRON 4 MG/2 ML VIAL IV PRN (10:50)
[2019-03-27] MEDS ORDERED: LORazepam 2 MG/ML VIAL IV PRN (10:52)
[2019-03-27] MEDS ORDERED: ACETAMINOPHEN 1,000 MG in PREMIX 1 BAG IV SCH (11:00)
[2019-03-27] MEDS ORDERED: 0.9 % SODIUM CHLORIDE 250 ML IV SCH (11:00)
[2019-03-27] MEDS: PIPERACILLIN SODIUM/TAZOBACTAM 3.375 GM in DEXTROSE 5% IN WATER 50 ML IV SCH ×3 (11:42→23:27)
--- NOTE | 2019-03-27 12:07 | General Surg History&Physical ---
History of Present Illness Patient information: Note initiated : 03/27/19 at 11:53 am Service Date, if different from initiated Date: [] Patient: Yen Patrick a 58 y/o F admitted on 03/27/19 for Constipation and Nausea. Chief Complaint: [] HPI: Ms. Johanna Valente is a 58 year old F admitted with small bowel obstruction due to parastomal hernia. The patient has an extensive history. She developed diverticulitis in March 2018. She was doing well until early July when she presented with shortness of breath and was found out to have right pleural effusion. She had drainage of the pleural effusion uneventfully. Cytology on the fluid revealed cells compatible with metastatic ovarian cancer. She was being readied for therapy when she presented to the emergency room on July complaining of abdominal pain, increasing shortness of breath, fever, chills. She was found to have malignant ascites with sigmoid diverticulitis. She was admitted to [facility] in [place], [place]. It initial impression was that she had bacterial peritonitis. She subsequently developed worsening septic shock and did not respond to treatment. On 10 August, she was noted to have free air. She had exploratory laparotomy with findings of diverticulitis with abscess and metastatic ovarian cancer with a large omental cake. Sigmoid colectomy with Valdez's procedure was carried out. The pathology on the resected colon was positive for metastatic ovarian cancer. The patient received 6 courses of chemotherapy from September 2018 until January 2019. Her CA 125, reduced to 12 after a peak of 300+. She was treated with carboplatinum and Taxol. After completion of the chemotherapy. The patient was scheduled for hysterectomy and salpingo-oophorectomy with tumor debulking by oncologist. Exploratory laparotomy was done on . At laparotomy she was found to have extensive adhesions in a hostile pelvis with no identifiable structures. She also had a parastomal hernia containing small bowel. An omentectomy was done which showed very rare cell, consistent with metastatic ovarian cancer. A left adnexal mass was removed which was benign, but it did not contain any ovarian fragments. Hysterectomy and salpingo-oophorectomy was not completed because of anatomic findings. The surgeon did close the parastomal defect with 2 Prolene sutures. She was discharged home on March 24. She became symptomatic on the and develop more abdominal pain with nausea and vomiting up until the time that she was seen in the emergency room. In the emergency room. She is found to have a large parastomal hernia with partial obstruction of small bowel in the hernia sac and with a large by fluid in the hernia sac. The bowel proximal to the parastomal hernia is dilated and the distal to the hernia is decompressed. She has been admitted and started on IV hydration, nasogastric decompression, antibiotics. She is counseled for laparotomy tomorrow at noon with the anticipated plan of repairing the parastomal hernia. She is told that further operation. At this time would be fraught with problems but possibly could be revisited in 6-9 months if she continues to do well. Review of Systems - Constitutional fatigue, malaise, weakness, weight loss - EENT Nose, mouth and throat: dizziness, vertigo - Breasts other (status post bilateral mastectomy with TRAM flap) - Cardiovascular dyspnea on exertion, rapid heart rate, no chest pain with activity, no palpatations, no syncope - Respiratory no cough, no dyspnea on exertion, no wheezing - Gastrointestinal abdominal pain, bloating, change in bowel habits, cramping, nausea, vomiting, no hematochezia, no melena - Genitourinary Genitourinary: no dysuria, no nocturia, no urinary incontinence - Musculoskeletal no arthralgias, no back pain, no joint swelling, no stiffness - Integumentary alopecia, no new lesions, no pruritus, no rash - Neurological burning sensations, numbness, no dizziness, no headache(s), no syncope, no tremor(s), no vertigo - Psychiatric depression (Fabi), irritability (, and the surgical oncologist at [place]), mood swings, no anxiety (. This left a small bowel compressive( that she is getting a little gas is this is gas in the colonno no( last, although no she has started she developed very metastases, ascites) - Endocrine as per HPI, fatigue ( she did hold) - Hematologic/Lymphatic no as per HPI, no easy bleeding, no easy bruising, no lymphadenopathy - Allergic/Immunologic no as per HPI, no tongue swelling, no throat swelling, no uticaria, no wheezing, no lip swelling (and sulci) Past History Past medical history: History of diverticulitis. Diabetes mellitus. Depression with anxiety. Ovarian cancer with peritoneal carcinomatosis, status post adjuvant chemotherapy. Essential tremor. Hypertension. Breast cancer Past surgical history: Bilateral mastectomy with TRAM flap closure 1998. History of kidney surgery. Bilateral total knee arthroplasty. Cholecystectomy Past family history: Breast cancer. Colon cancer. Lung cancer. Coronary artery disease. Stroke. Diabetes mellitus Past social history: Disabled Denies tobacco use. He is refusing alcohol Denies drug use Medications and Allergies Home Medications Medication Instructions Recorded Confirmed Type Ergocalciferol (Vitamin D2) 5,000 unit PO DAILY 10/10/18 03/27/19 History [Vitamin D2] Haloperidol [Haldol] 1 mg PO BID 10/10/18 01/23/19 History Metoclopramide [Reglan] 1 tab PO QID 10/10/18 03/27/19 History Ondansetron [Zofran ODT] 8 mg SL Q8 PRN 10/10/18 03/27/19 History lorazepam 1 mg tablet 1 mg PO QDAY PRN #90 tab 10/31/18 03/27/19 Rx metoprolol tartrate 25 mg tablet 25 mg PO BID #180 tab 02/11/19 03/27/19 Rx venlafaxine 75 mg tablet 150 mg PO BID #360 tab 02/13/19 03/27/19 Rx Ciprofloxacin [Cipro] 500 mg PO BID 03/27/19 03/27/19 History HYDROmorphone HCL [Hydromorphone 4 - 6 mg PO Q4H PRN 03/27/19 03/27/19 History HCl] Sennosides/Docusate Sodium [Senna 2 tab PO BID 03/27/19 03/27/19 History Plus Tablet] Tamsulosin [Flomax] 1 cap PO DAILY 03/27/19 03/27/19 History Toviaz 8 mg PO QDAY 03/27/19 03/27/19 History traZODone HCL [Desyrel] 150 mg PO HS 03/27/19 03/27/19 History Allergies Allergy/AdvReac Type Severity Reaction Status Date / Time promethazine [From Phenergan] Allergy Unknown Unknown Verified 01/23/19 11:30 acetaminophen [From Vicodin] AdvReac Mild Nausea Verified 01/23/19 11:30 hydrocodone [From Vicodin] AdvReac Mild Nausea Verified 01/23/19 11:30 Exam Temp Pulse Resp BP Pulse Ox 99.0 F 94 H 18 122/76 94 03/27/19 07:48 03/27/19 07:48 03/27/19 07:48 03/27/19 07:48 03/27/19 07:48 - General physical appearance well developed, well nourished, no distress, moderate pain, chronically ill - Eyes PERRL, normal ocular movement - ENT normal pinna, normal nares, normal mucosa, no hearing loss, no congestion - Head Head exam IM: Present: atraumatic, normocephalic (positive alopecia) - Neck no masses, no bruits, trachea midline, no lymphadenopathy, no venous distension - Cardiovascular Cardiovascular exam IM: Present: normal rate and rhythm, RRR, +S1, +S2. Absent: JVD - Respiratory normal expansion, normal respiratory effort, clear to auscultation - Abdomen Abdomen: Present: soft, tender ( diffuse tenderness; stoma in left lower quadrant with parastomal swelling and mild tenderness), bowel sounds, surgical scars ( near midline surgical scar without inflammation with staple line intact), distended Hernia: Present: none - Genitourinary Present: normal external genitalia - Integumentary Present: no rash, no growths, no abnormal pigmentation - Neurologic Present: normal coordination, normal sensation - Musculoskeletal Present: normal gait, normal posture - Psychiatric Present: oriented to time, oriented to person, oriented to place, speech is normal, memory intact Assessment and Plan (1) Parastomal hernia with obstruction and without gangrene Nasogastric decompression. IV hydration. Antibiotic coverage. Schedule for exploratory laparotomy in the a.m. Status: Acute (2) Small bowel obstruction Status: Acute (3) Breast cancer Status: Chronic Comment: 1998 s/p maya mastectomy. (4) Diabetes Status: Chronic (5) Ovarian cancer Status: Chronic Comment: Dx Jul 2018. Finished chemo Dec 2018. Anticipates chemo in pill form.
[2019-03-27] MEDS ORDERED: METOPROLOL TARTRATE 5 MG/5 ML VIAL IV PRN (12:32)
[2019-03-27] MEDS: ACETAMINOPHEN 1,000 MG/100 ML BOTTLE IV SCH ×3 (12:41→18:32)
--- NOTE | 2019-03-27 15:00 | XRay Report ---
CLINICAL INFORMATION: preop evaluation COMPARISON: Two-view chest 08/01/2018. FINDINGS: Mild cardiomegaly appreciated. Mediastinum and pulmonary vessels are unremarkable. Right-sided Port-A-Cath tip overlies the SVC/right atrial junction. Mild right basilar airspace disease has developed - likely atelectasis. Small right pleural effusion noted IMPRESSION: Mild right basilar airspace disease likely atelectasis. Small right pleural effusion Interpreted and Authenticated by: Wilfredo Ahn 03/27/19
--- NOTE | 2019-03-27 15:13 | Event Note ---
case reviewed with Dr Garcia, Medicine consult not needed at this time.
[2019-03-27] MEDS: PANTOPRAZOLE 40 MG VIAL IV SCH (16:42)
[2019-03-28] MEDS: ACETAMINOPHEN 1,000 MG/100 ML BOTTLE IV SCH ×2 (00:25→05:45)
[2019-03-28] MEDS: 0.9 % SODIUM CHLORIDE 1,000 ML IV SCH ×4 (04:35→20:40)
[2019-03-28 05:15] LABS: Basophils # (Auto) 0 K/mcL (0.0-0.3); Basophils % (Auto) 0.3 % (0.0-2.0); Eosinophils # (Auto) 0.2 K/mcL (0.0-0.7); Eosinophils % (Auto) 2.5 % (0.0-7.0); Granulocytes % (Auto) 75.7 % (38.0-78.0); Hematocrit 27.6 % (36.0-48.0); Hemoglobin 8.7 g/dL (12.0-15.0); Lymphocytes # (Auto) 0.7 K/mcL (1.5-4.8); Lymphocytes % (Auto) 11.9 % (15.5-49.0); Mean Cell Volume 95.4 fL (80.0-100.0); Mean Corpuscular HGB Conc 31.5 g/dL (31.0-36.0); Monocytes # (Auto) 0.6 K/mcL (0.1-0.9); Monocytes % (Auto) 9.6 % (1.0-12.0); Platelet Count 242 K/mcL (140-440); Prothrombin Time 13.7 sec (11.9-14.5); RBC 2.89 M/mcL (4.00-5.20); Red Cell Distribution Width 17.6 % (11.5-14.5); WBC 6.2 K/mcL (4.5-11.0)
[2019-03-28 05:44] LABS: ALT/SGPT 12 U/l (0-40); AST/SGOT 13 U/l (0-37); Albumin 2.6 gm/dL (3.2-5.2); Albumin/Globulin Ratio 0.8 (1.0-2.3); Alkaline Phosphatase 95 U/L (39-117); Bilirubin,Direct < 0.2 mg/dL (0.0-0.3); Bilirubin,Total 0.2 mg/dL (0.0-1.0); Blood Urea Nitrogen 8 mg/dl (6-20); Calcium 8.3 mg/dl (8.6-10.4); Carbon Dioxide 34 mmol/L (22-30); Chloride 101 mmol/L (96-108); Gamma Glutamyl Transpeptidase 60 U/L (5-36); Globulin 3.3 gm/dL (2.2-3.7); Glomerular Filtration Rate 96; Glucose 86 mg/dL (70-105); Lactate Dehydrogenase 142 U/L (94-250); Magnesium 2.3 mg/dL (1.6-2.5); Phosphorous 3.7 mg/dL (2.7-4.5); Potassium 3.7 mmol/L (3.3-5.1); Sodium 143 mmol/L (133-145); Triglycerides 94 mg/dl (<150); Uric Acid 4.4 mg/dL (2.5-8.0)
[2019-03-28] MEDS: PIPERACILLIN SODIUM/TAZOBACTAM 3.375 GM in DEXTROSE 5% IN WATER 50 ML IV SCH ×4 (06:17→23:10)
--- NOTE | 2019-03-28 08:12 | XRay Report ---
CLINICAL INFORMATION: Follow-up surgical reduction small bowel obstruction due to a parastomal hernia COMPARISON: 03/27/2019 FINDINGS: NG tube overlies the gastric body in satisfactory position. Only small amounts of gas seen throughout the stomach small and large bowel IMPRESSION: Decompressed GI tract. No evidence of recurrent bowel obstruction. Negative exam Interpreted and Authenticated by: Wilfredo Ahn 03/28/19
[2019-03-28] MEDS: PNEUMOCOCCAL 23-VAL P-SAC VAC 0.5 ML SYRINGE IM ONE ×2 (10:25→10:57)
[2019-03-28] MEDS: PANTOPRAZOLE 40 MG VIAL IV SCH ×2 (10:42→17:39)
--- NOTE | 2019-03-28 12:25 | General Surgery Progress Note ---
Subjective Patient reports: feels better, pain is less, flatus, bowel movement, afebrile Narrative: Note initiated : 03/28/19 at 12:25 pm Service Date, if different from initiated Date: [] Patient: Yen Patrick 58 y/o F admitted on 03/27/19 for Constipation and Nausea. Chief Complaint: [patient states that she feels better. She had a large volume of gas out of her stoma during the night. She also had a small, solid stool. Her abdominal distention is improved and x-rays this morning shows significant reduction in intestinal gas including the stomach. She had large volume output over 3000 cc and this may have allowed the distended bowel in the hernia sac to decompress. Discussed with her the possibility that if she is partially open. We can delay her surgery and do a small bowel follow-through. She is agreeable with this and surgery will be delayed until the results of the small bowel follow-through completed.] Objective Temp Pulse Resp BP Pulse Ox 97.9 F 74 16 115/72 97 03/28/19 07:53 03/28/19 07:53 03/28/19 08:00 03/28/19 07:53 03/28/19 08:00 - Additional Data Intake & Output - Last 24 hours: Intake & Output 03/26/19 03/27/19 03/28/19 03/29/19 05:59 05:59 05:59 05:59 Intake Total 3980 150 Output Total 4350 900 Balance -370 -750 Weight 247 lb 8 oz 249 lb - General physical appearance well developed, well nourished, no distress, chronically ill - Eyes PERRL, normal ocular movement - ENT normal pinna, normal nares, normal mucosa, no congestion - Neck no masses, no bruits, trachea midline, no lymphadenopathy, no venous distension - Respiratory normal expansion, normal respiratory effort, clear to auscultation - Cardiovascular Cardiovascular exam: Present: normal rate and rhythm, RRR, +S1, +S2. Absent: JVD, tachycardia - Abdomen soft, tender, bowel sounds, wound (. Incision looks good AND stoma is functioning), distended (. Mild distention) - Integumentary no rash, no growths, no abnormal pigmentation - Neurologic normal coordination, normal sensation - Musculoskeletal normal gait, normal posture - Psychiatric oriented to time, oriented to person, oriented to place, speech is normal, memory intact - Labs 03/28/19 04:20 03/28/19 04:20 Diabetes panel 03/28/19 Range/Units 04:20 Sodium 143 (133-145) mmol/L Potassium 3.7 (3.3-5.1) mmol/L Chloride 101 (96-108) mmol/L Carbon Dioxide 34 H (22-30) mmol/L BUN 8 (6-20) mg/dl Creatinine 0.7 (0.6-1.1) mg/dl Glucose 86 (70-105) mg/dL Calcium 8.3 L (8.6-10.4) mg/dl AST 13 (0-37) U/l ALT 12 (0-40) U/l Alkaline Phosphatase 95 (39-117) U/L Total Protein 5.9 (5.9-8.4) gm/dL Albumin 2.6 L (3.2-5.2) gm/dL Triglycerides 94 (<150) mg/dl Calcium panel 03/28/19 Range/Units 04:20 Calcium 8.3 L (8.6-10.4) mg/dl Phosphorus 3.7 (2.7-4.5) mg/dL Albumin 2.6 L (3.2-5.2) gm/dL Pituitary panel 03/28/19 Range/Units 04:20 Sodium 143 (133-145) mmol/L Potassium 3.7 (3.3-5.1) mmol/L Chloride 101 (96-108) mmol/L Carbon Dioxide 34 H (22-30) mmol/L BUN 8 (6-20) mg/dl Creatinine 0.7 (0.6-1.1) mg/dl Glucose 86 (70-105) mg/dL Calcium 8.3 L (8.6-10.4) mg/dl Adrenal panel 03/28/19 Range/Units 04:20 Sodium 143 (133-145) mmol/L Potassium 3.7 (3.3-5.1) mmol/L Chloride 101 (96-108) mmol/L Carbon Dioxide 34 H (22-30) mmol/L BUN 8 (6-20) mg/dl Creatinine 0.7 (0.6-1.1) mg/dl Glucose 86 (70-105) mg/dL Calcium 8.3 L (8.6-10.4) mg/dl Total Bilirubin 0.2 (0.0-1.0) mg/dL AST 13 (0-37) U/l ALT 12 (0-40) U/l Alkaline Phosphatase 95 (39-117) U/L Total Protein 5.9 (5.9-8.4) gm/dL Albumin 2.6 L (3.2-5.2) gm/dL Assessment and Plan (1) Parastomal hernia with obstruction and without gangrene Status: Acute Assessment and plan: Delay surgery Proceed with small bowel follow-through today. Allow patient to have clear liquids Current Visit: Yes (2) Small bowel obstruction Status: Acute Assessment and plan: Clinically improved Current Visit: Yes (3) Breast cancer Problem details: 1998 s/p maya mastectomy. Status: Chronic Current Visit: No (4) Diabetes Status: Chronic Current Visit: No (5) Ovarian cancer Problem details: Dx Jul 2018. Finished chemo Dec 2018. Anticipates chemo in pill form. Status: Chronic Current Visit: No - Time Spent With Patient Total time spent is greater than 50% in coordination of care (as documented) at patient's floor/unit and/or counseling patient:
[2019-03-28] MEDS ORDERED: DIATRIZOATE MEGLU/DIATRIZO SOD 30 ML BOTTLE PO ONE (15:29)
[2019-03-28] MEDS: METOCLOPRAMIDE 10 MG/2 ML VIAL IV SCH ×2 (17:38→23:10)
[2019-03-28] MEDS ORDERED: LORazepam 1 MG TABLET PO PRN (17:49)
--- NOTE | 2019-03-28 19:26 | XRay Report ---
CLINICAL INFORMATION: Follow-up small bowel obstruction - incarceration of distal small bowel in a left parastomal hernia COMPARISON: Abdomen and pelvic CT 03/27/2019 TECHNIQUE: Water-soluble contrast was infused indwelling NG catheter and serial imaging was obtained over one hour FINDINGS: The stomach, small and large bowel are normal in caliber to the level of the left lower quadrant colostomy. No evidence of distal small bowel obstruction. The complete bowel transit time is only approximately one hour IMPRESSION: Normal exam. No evidence of distal small bowel obstruction Interpreted and Authenticated by: Wilfredo Ahn 03/28/19
[2019-03-28] MEDS: traZODone HCL 150 MG TABLET PO SCH (20:39)
[2019-03-28] MEDS: VENLAFAXINE 75 MG TABLET PO SCH (20:39)
[2019-03-28] MEDS: METOPROLOL TARTRATE 25 MG TABLET PO SCH (20:39)
[2019-03-28] MEDS: SENNOSIDES/DOCUSATE SODIUM 1 TAB TABLET PO SCH (20:40)
[2019-03-28] MEDS: HYDROmorphone 2 MG/ML VIAL IV PRN (23:26)
[2019-03-29] MEDS: 0.9 % SODIUM CHLORIDE 1,000 ML IV SCH ×2 (04:10→16:30)
[2019-03-29] MEDS: METOCLOPRAMIDE 10 MG/2 ML VIAL IV SCH ×2 (05:47→14:21)
[2019-03-29] MEDS: PIPERACILLIN SODIUM/TAZOBACTAM 3.375 GM in DEXTROSE 5% IN WATER 50 ML IV SCH ×3 (05:47→17:46)
[2019-03-29 06:32] LABS: Basophils # (Auto) 0 K/mcL (0.0-0.3); Basophils % (Auto) 0.3 % (0.0-2.0); Eosinophils # (Auto) 0.3 K/mcL (0.0-0.7); Eosinophils % (Auto) 3.1 % (0.0-7.0); Granulocytes % (Auto) 76.5 % (38.0-78.0); Hematocrit 27.5 % (36.0-48.0); Hemoglobin 8.9 g/dL (12.0-15.0); Lymphocytes # (Auto) 1.1 K/mcL (1.5-4.8); Mean Cell Volume 94.3 fL (80.0-100.0); Mean Corpuscular HGB Conc 32.4 g/dL (31.0-36.0); Mean Platelet Volume 7.3 fL (7.4-10.4); Monocytes # (Auto) 0.6 K/mcL (0.1-0.9); Monocytes % (Auto) 7.1 % (1.0-12.0); Platelet Count 265 K/mcL (140-440); RBC 2.91 M/mcL (4.00-5.20); Red Cell Distribution Width 17.9 % (11.5-14.5); WBC 8.4 K/mcL (4.5-11.0)
[2019-03-29 06:57] LABS: ALT/SGPT 11 U/l (0-40); AST/SGOT 11 U/l (0-37); Albumin 2.6 gm/dL (3.2-5.2); Albumin/Globulin Ratio 0.8 (1.0-2.3); Alkaline Phosphatase 91 U/L (39-117); Bilirubin,Direct < 0.2 mg/dL (0.0-0.3); Bilirubin,Total 0.2 mg/dL (0.0-1.0); Blood Urea Nitrogen 8 mg/dl (6-20); Carbon Dioxide 30 mmol/L (22-30); Chloride 103 mmol/L (96-108); Gamma Glutamyl Transpeptidase 54 U/L (5-36); Globulin 3.1 gm/dL (2.2-3.7); Glomerular Filtration Rate 96; Glucose 90 mg/dL (70-105); Lactate Dehydrogenase 154 U/L (94-250); Magnesium 2.1 mg/dL (1.6-2.5); Phosphorous 2.4 mg/dL (2.7-4.5); Potassium 3.3 mmol/L (3.3-5.1); Sodium 142 mmol/L (133-145); Triglycerides 120 mg/dl (<150); Uric Acid 3.5 mg/dL (2.5-8.0)
[2019-03-29] MEDS: PANTOPRAZOLE 40 MG VIAL IV SCH ×2 (07:32→17:47)
--- NOTE | 2019-03-29 08:05 | XRay Report ---
CLINICAL INFORMATION: FOLLOW -UP OF SMALL BOWEL OBSTRUCTION COMPARISON: Small bowel follow-through 03/28/2019 FINDINGS: The gas pattern is unremarkable. No free air or soft tissue mass. Right ureteral stent in stable satisfactory position. IMPRESSION: Negative exam. Interpreted and Authenticated by: Wilfredo Ahn 03/29/19
[2019-03-29] MEDS: POTASSIUM PHOSPHATE 40 MEQ in DEXTROSE 5% IN WATER 500 ML IV SCH ×2 (09:54→16:29)
[2019-03-29] MEDS: VENLAFAXINE 75 MG TABLET PO SCH ×2 (09:55→20:50)
[2019-03-29] MEDS: METOPROLOL TARTRATE 25 MG TABLET PO SCH ×2 (09:55→20:50)
[2019-03-29] MEDS: TAMSULOSIN 0.4 MG CAPSULE PO SCH (09:55)
[2019-03-29] MEDS: SENNOSIDES/DOCUSATE SODIUM 1 TAB TABLET PO SCH ×3 (09:56→20:59)
[2019-03-29] MEDS: FESOTERODINE 8 MG PO SCH (09:57)
[2019-03-29] MEDS: HYDROmorphone 2 MG/ML VIAL IV PRN (11:41)
--- NOTE | 2019-03-29 12:52 | General Surgery Progress Note ---
Subjective Patient reports: feels better, pain is less, tolerating liquids well, flatus, bowel movement, diarrhea, afebrile Narrative: Note initiated : 03/29/19 at 12:51 pm Service Date, if different from initiated Date: [] Patient: Yen Patrick 58 y/o F admitted on 03/27/19 for Constipation and Nausea. Chief Complaint: [patient feels much better. She had multiple stools throughout the night with it, 3750 cc of measured liquid stool. She still has some upper abdominal pain that spreads across her abdomen. She is tolerating liquids without difficulty. She does not have nausea, vomiting.abdominal x-rays shows moderate amount of gas in her transverse colon and descending colon. There is no significant small bowel distention. White blood count 8.4, hemoglobin 8.9, hematocrit 27.5, potassium 3.3, phosphorus 2.4, BUN 8, creatinine 0.7.] Objective Temp Pulse Resp BP Pulse Ox 98.3 F 77 18 121/79 92 03/29/19 07:15 03/29/19 04:00 03/29/19 08:00 03/29/19 07:15 03/29/19 07:15 - Additional Data Intake & Output - Last 24 hours: Intake & Output 03/27/19 03/28/19 03/29/19 03/30/19 05:59 05:59 05:59 05:59 Intake Total 3980 4800 50 Output Total 4350 7610 Balance -370 -2810 50 Weight 247 lb 8 oz 249 lb 243 lb 8 oz - General physical appearance well developed, well nourished, moderate distress, moderate pain, chronically ill - Eyes PERRL, normal ocular movement - ENT normal pinna, normal nares, normal mucosa, no hearing loss, no congestion - Neck no masses, no bruits, trachea midline, no lymphadenopathy, no venous distension - Respiratory normal expansion, normal respiratory effort, clear to auscultation - Cardiovascular Cardiovascular exam: Present: normal rate and rhythm, RRR, +S1, +S2. Absent: JVD, tachycardia - Abdomen tender (mild tenderness left mid abdomen with moderate diffuse distention; stoma left lower quadrant is functioning adequately and appears to be healthy) - Integumentary no rash, no growths, no abnormal pigmentation - Neurologic normal coordination, normal sensation - Musculoskeletal normal gait, normal posture - Psychiatric oriented to time, oriented to person, oriented to place, speech is normal, memory intact - Labs 03/29/19 04:15 03/29/19 04:15 Diabetes panel 03/29/19 Range/Units 04:15 Sodium 142 (133-145) mmol/L Potassium 3.3 (3.3-5.1) mmol/L Chloride 103 (96-108) mmol/L Carbon Dioxide 30 (22-30) mmol/L BUN 8 (6-20) mg/dl Creatinine 0.7 (0.6-1.1) mg/dl Glucose 90 (70-105) mg/dL Calcium 8.0 L (8.6-10.4) mg/dl AST 11 (0-37) U/l ALT 11 (0-40) U/l Alkaline Phosphatase 91 (39-117) U/L Total Protein 5.7 L (5.9-8.4) gm/dL Albumin 2.6 L (3.2-5.2) gm/dL Triglycerides 120 (<150) mg/dl Calcium panel 03/29/19 Range/Units 04:15 Calcium 8.0 L (8.6-10.4) mg/dl Phosphorus 2.4 L (2.7-4.5) mg/dL Albumin 2.6 L (3.2-5.2) gm/dL Pituitary panel 03/29/19 Range/Units 04:15 Sodium 142 (133-145) mmol/L Potassium 3.3 (3.3-5.1) mmol/L Chloride 103 (96-108) mmol/L Carbon Dioxide 30 (22-30) mmol/L BUN 8 (6-20) mg/dl Creatinine 0.7 (0.6-1.1) mg/dl Glucose 90 (70-105) mg/dL Calcium 8.0 L (8.6-10.4) mg/dl Adrenal panel 03/29/19 Range/Units 04:15 Sodium 142 (133-145) mmol/L Potassium 3.3 (3.3-5.1) mmol/L Chloride 103 (96-108) mmol/L Carbon Dioxide 30 (22-30) mmol/L BUN 8 (6-20) mg/dl Creatinine 0.7 (0.6-1.1) mg/dl Glucose 90 (70-105) mg/dL Calcium 8.0 L (8.6-10.4) mg/dl Total Bilirubin 0.2 (0.0-1.0) mg/dL AST 11 (0-37) U/l ALT 11 (0-40) U/l Alkaline Phosphatase 91 (39-117) U/L Total Protein 5.7 L (5.9-8.4) gm/dL Albumin 2.6 L (3.2-5.2) gm/dL Assessment and Plan (1) Parastomal hernia with obstruction and without gangrene Status: Acute Assessment and plan: Continue full liquids. MiraLAX 8 ounces twice daily Current Visit: Yes (2) Small bowel obstruction Status: Acute Assessment and plan: Clinically improved Current Visit: Yes (3) Breast cancer Problem details: 1998 s/p maya mastectomy. Status: Chronic Current Visit: No (4) Diabetes Status: Chronic Current Visit: No (5) Ovarian cancer Problem details: Dx Jul 2018. Finished chemo Dec 2018. Anticipates chemo in p ill form. Status: Chronic Current Visit: No - Time Spent With Patient Total time spent is greater than 50% in coordination of care (as documented) at patient's floor/unit and/or counseling patient:
[2019-03-29] MEDS: POLYETHYLENE GLYCOL 3350 17 GM PACKET PO SCH ×2 (16:30→20:49)
[2019-03-29] MEDS: traZODone HCL 150 MG TABLET PO SCH (20:50)
[2019-03-30] MEDS: PIPERACILLIN SODIUM/TAZOBACTAM 3.375 GM in DEXTROSE 5% IN WATER 50 ML IV SCH ×3 (00:56→11:50)
[2019-03-30] MEDS: 0.9 % SODIUM CHLORIDE 1,000 ML IV SCH ×4 (00:57→09:34)
[2019-03-30] MEDS: HYDROmorphone 2 MG/ML VIAL IV PRN (04:21)
[2019-03-30 05:43] LABS: Basophils # (Auto) 0 K/mcL (0.0-0.3); Basophils % (Auto) 0.3 % (0.0-2.0); Eosinophils # (Auto) 0.3 K/mcL (0.0-0.7); Eosinophils % (Auto) 3.7 % (0.0-7.0); Granulocytes % (Auto) 75.3 % (38.0-78.0); Hematocrit 28.2 % (36.0-48.0); Hemoglobin 9.1 g/dL (12.0-15.0); Lymphocytes # (Auto) 1.1 K/mcL (1.5-4.8); Lymphocytes % (Auto) 12.8 % (15.5-49.0); Mean Cell Volume 94.2 fL (80.0-100.0); Mean Corpuscular HGB Conc 32.3 g/dL (31.0-36.0); Mean Platelet Volume 7.4 fL (7.4-10.4); Monocytes # (Auto) 0.7 K/mcL (0.1-0.9); Monocytes % (Auto) 7.9 % (1.0-12.0); Platelet Count 285 K/mcL (140-440); Red Cell Distribution Width 17.9 % (11.5-14.5); WBC 8.5 K/mcL (4.5-11.0)
[2019-03-30 06:00] LABS: ALT/SGPT 10 U/l (0-40); AST/SGOT 12 U/l (0-37); Albumin 2.6 gm/dL (3.2-5.2); Albumin/Globulin Ratio 0.8 (1.0-2.3); Alkaline Phosphatase 83 U/L (39-117); Bilirubin,Direct < 0.2 mg/dL (0.0-0.3); Bilirubin,Total 0.3 mg/dL (0.0-1.0); Blood Urea Nitrogen 5 mg/dl (6-20); Calcium 8.2 mg/dl (8.6-10.4); Carbon Dioxide 25 mmol/L (22-30); Chloride 106 mmol/L (96-108); Gamma Glutamyl Transpeptidase 50 U/L (5-36); Globulin 3.4 gm/dL (2.2-3.7); Glomerular Filtration Rate 96; Glucose 92 mg/dL (70-105); Lactate Dehydrogenase 181 U/L (94-250); Magnesium 2.1 mg/dL (1.6-2.5); Potassium 3.6 mmol/L (3.3-5.1); Sodium 141 mmol/L (133-145); Triglycerides 112 mg/dl (<150); Uric Acid 2.8 mg/dL (2.5-8.0)
[2019-03-30] MEDS: POLYETHYLENE GLYCOL 3350 17 GM PACKET PO SCH ×2 (07:46→14:52)
[2019-03-30] MEDS: PANTOPRAZOLE 40 MG VIAL IV SCH (07:46)
[2019-03-30] MEDS: TAMSULOSIN 0.4 MG CAPSULE PO SCH (07:47)
[2019-03-30] MEDS: METOPROLOL TARTRATE 25 MG TABLET PO SCH (07:47)
[2019-03-30] MEDS: SENNOSIDES/DOCUSATE SODIUM 1 TAB TABLET PO SCH ×2 (07:47→07:55)
[2019-03-30] MEDS: VENLAFAXINE 75 MG TABLET PO SCH (07:47)
[2019-03-30] MEDS: FESOTERODINE 8 MG PO SCH (07:48)
[2019-03-30] MEDS ORDERED: risperiDONE 1 MG TABLET PO SCH (09:00)
--- NOTE | 2019-03-30 09:49 | XRay Report ---
CLINICAL INFORMATION: FOLLOW -UP OF SMALL BOWEL OBSTRUCTION COMPARISON: 03/29/2019 FINDINGS: Stomach and small bowel show small amounts of gas with scattered air-fluid levels. Findings most compatible with atypical ileus. No free air or soft tissue mass. IMPRESSION: Atypical ileus pattern. Interpreted and Authenticated by: Wilfredo Ahn 03/30/19
[2019-03-30] MEDS ORDERED: oxyCODONE/APAP 10/325MG TABLET PO PRN (10:01)
--- NOTE | 2019-03-30 13:33 | Discharge Summary ---
Providers - Providers Patient information: Note initiated : 03/30/19 at 1:32 pm Service Date, if different from initiated Date: [] Patient: Yen Patrick 58 y/o F admitted on 03/27/19 for Constipation and Nausea. Chief Complaint: [] Date of admission: 03/27/19 Discharge date: 03/30/19 Attending physician: Justin Garcia Hospitalization Hospital course: 50-year-old female admitted with small bowel obstruction due to a large parastomal hernia. The patient is status post exploratory laparotomy with adhesion lysis and parastomal hernia repair and March at [facility]. She was discharged home on March. She became symptomatic on 25 March and rapidly developed increasing abdominal pain with nausea and vomiting. She did not have any output through her stoma. CT of the abdomen revealed dilated stomach and small bowel loops . The area of obstruction was in the recurrent parastomal hernia pouch. Patient was admitted and treated with Nasogastric decompression. During the night she started having gas through her stoma. It was elected to proceed with a small bowel follow-through which showed appearance of contrast in the colon within 1 hour. She had large volumes of gas followed by 3750 cc of measured liquid stool during the day.. Her follow-up x-rays showed significant reduction in small bowel and stomach dilation with the presence of large volume of stool in the colon. She has continued to have regular bowel movements daily and she has been able to tolerate feedings without difficulty. She still has the parastomal hernia, but it is decompressed and since it is so close to her last surgery, I feel comfortable that we should wait to allow for more healing rather than venture into an already hostile abdomen. At this time. The patient will take MiraLAX at least twice daily. I will follow her up in 2 weeks. She is advised to follow-up IN THE EMERGENCY ROOM if she should have recurrent symptoms. Discharge diagnosis: small bowel obstruction Secondary discharge diagnosis: , parastomal hernia History of metastatic ovarian cancer. Extensive intra-abdominal adhesions Reason for admission: abdominal pain, nausea and vomiting Procedures: None Pertinent studies/significant findings: Contrast small bowel follow-through Complications: None Exam Temp Pulse Resp BP Pulse Ox 97.8 F 75 17 128/70 95 03/30/19 12:00 03/30/19 12:00 03/30/19 12:03/30/19 12:00 03/30/19 12:00 - General physical appearance well developed, well nourished, no distress - Eyes PERRL, normal ocular movement - ENT normal pinna, normal nares, normal mucosa, no hearing loss, no congestion - Head Head exam IM: Present: atraumatic, normocephalic - Neck no masses, no bruits, trachea midline, no lymphadenopathy, no venous distension - Cardiovascular Cardiovascular exam IM: Present: normal rate and rhythm - Respiratory normal expansion, normal respiratory effort, clear to auscultation - Abdomen Abdomen: Present: soft, non tender, bowel sounds, surgical scars (surgical incision is healing uneventfully; good active bowel sounds; minimal abdominal distention; functioning colostomy left lower quadrant) Hernia: Present: none - Genitourinary Present: normal external genitalia - Integumentary Present: no rash, no growths, no abnormal pigmentation - Neurologic Present: normal coordination, normal sensation - Musculoskeletal Present: normal gait, normal posture - Psychiatric Present: oriented to time, oriented to person, oriented to place, speech is normal, memory intact Discharge Plan - Patient/Caregiver Discharge Instructions Activity: increase activity as tolerated Diet: Full Liquid ( full liquid diet today and progressed to soft diet tomorrow) Additional Instructions: . Activity as tolerated. Keep dressing dry. May shower. Follow up with Dr. Munroe. Contact his office on 04/02, to schedule. [phone] Garcia in 2 weeks. Contact the office on 04/02, to schedule. [phone] Return to ER for fever, chills, nausea and/or vomiting, dizziness, unable to go to the bathroom, pain, chest pain, shortness of breath or other acute symptom. - Follow up Plan Follow up with: Wilfredo Munroe DO [Primary Care Provider] - Disposition: Home, Self-Care Prognosis: Good Rehab Potential: Good I certify that the patient requires SNF services.: No Overall status at discharge: patient is progressing back to baseline Pending Studies Resuscitation Status Full Code Diet Full Liquid Diet Start MonMarch 29 1248 Hydromorphone HCl (Dilaudid) 1 mg IV Q2HP PRN PRN Reason: PAIN LEVEL > 6 Last Admin: 03/30/19 04:21 Dose: 1 mg Documented by: Admin: 03/29/19 11:41 Dose: 1 mg Documented by: Admin: 03/28/19 23:26 Dose: 1 mg Documented by: DYLAN Piperacillin Sod/Tazobactam (Sod 3.375 gm/ Dextrose) 50 mls @ 100 mls/hr IV Q6H MOSES; Protocol Last Admin: 03/30/19 11:50 Dose: 100 mls/hr Documented by: MARIE Cosigned by: WILL Infusion: 03/30/19 07:09 Dose: 0 mls/hr Documented by: MARIE Cosigned by: WILL Admin: 03/30/19 06:05 Dose: 100 mls/hr Documented by: Infusion: 03/30/19 01:26 Dose: 100 mls/hr Documented by: Admin: 03/30/19 00:56 Dose: 100 mls/hr Documented by: Infusion: 03/29/19 20:59 Dose: 0 mls/hr Documented by: Admin: 03/29/19 17:46 Dose: 100 mls/hr Documented by: Infusion: 03/29/19 12:12 Dose: 100 mls/hr Documented by: Admin: 03/29/19 11:42 Dose: 100 mls/hr Documented by: Infusion: 03/29/19 06:17 Dose: 100 mls/hr Documented by: Admin: 03/29/19 05:47 Dose: 100 mls/hr Documented by: Infusion: 03/28/19 23:45 Dose: 0 mls/hr Documented by: Admin: 03/28/19 23:10 Dose: 100 mls/hr Documented by: Infusion: 03/28/19 17:45 Dose: 0 mls/hr Documented by: Admin: 03/28/19 17:38 Dose: 100 mls/hr Documented by: Infusion: 03/28/19 12:25 Dose: 100 mls/hr Documented by: Admin: 03/28/19 11:55 Dose: 100 mls/hr Documented by: Infusion: 03/28/19 06:47 Dose: 0 mls/hr Documented by: Admin: 03/28/19 06:17 Dose: 100 mls/hr Documented by: Infusion: 03/27/19 23:57 Dose: 100 mls/hr Documented by: Admin: 03/27/19 23:27 Dose: 100 mls/hr Documented by: Infusion: 03/27/19 18:06 Dose: 0 mls/hr Documented by: Admin: 03/27/19 17:36 Dose: 100 mls/hr Documented by: Infusion: 03/27/19 12:12 Dose: 100 mls/hr Documented by: Admin: 03/27/19 11:42 Dose: 100 mls/hr Documented by: PAUL Metoprolol Tartrate (Lopressor) 25 mg PO BID Critical access hospital Admin: 03/30/19 07:47 Dose: 25 mg Documented by: MARIE Cosigned by: WILL Admin: 03/29/19 20:50 Dose: 25 mg Documented by: Admin: 03/29/19 09:55 Dose: 25 mg Documented by: Admin: 03/28/19 20:39 Dose: 25 mg Documented by: DYLAN Oxycodone/Acetaminophen (Percocet 10-325mg) 1 tab PO Q4HP PRN PRN Reason: PAIN LEVEL 3-6 Last Admin: 03/30/19 10:08 Dose: 1 tab Documented by: MARIE Cosigned by: WILL Pantoprazole Sodium (Protonix) 40 mg IV BIDAC Critical [facility] hospital Admin: 03/30/19 07:46 Dose: 40 mg Documented by: MARIE Cosigned by: WILL Admin: 03/29/19 17:47 Dose: 40 mg Documented by: Admin: 03/29/19 07:32 Dose: 40 mg Documented by: Admin: 03/28/19 17:39 Dose: 40 mg Documented by: Admin: 03/28/19 10:42 Dose: 40 mg Documented by: Admin: 03/27/19 16:42 Dose: 40 mg Documented by: PAUL Fesoterodine (Toviaz () Er 8 Mg Tablet) 1 dose PO DAILY [facility] Last Admin: 03/30/19 07:48 Dose: Not Given Documented by: Admin: 03/29/19 09:57 Dose: Not Given Documented by: PAUL Polyethylene Glycol (Miralax) 17 gm PO TID [facility] Last Admin: 03/30/19 07:46 Dose: 17 gm Documented by: MARIE Cosigned by: WILL Admin: 03/29/19 20:49 Dose: 17 gm Documented by: Admin: 03/29/19 16:30 Dose: 17 gm Documented by: PAUL Risperidone (Risperdal) 2 mg PO DAILY [facility] Last Admin: 03/30/19 07:44 Dose: 2 mg Documented by: MARIE Cosigned by: WILL Senna/Docusate Sodium (Senna Plus Tablet) 2 tab PO BID Critical access hospital Admin: 03/30/19 07:55 Dose: Not Given Documented by: Admin: 03/29/19 20:59 Dose: Not Given Documented by: Admin: 03/29/19 09:56 Dose: Not Given Documented by: Admin: 03/28/19 20:40 Dose: Not Given Documented by: DYLAN Tamsulosin HCl (Flomax) 0.4 mg PO DAILY [facility] Last Admin: 03/30/19 07:47 Dose: 0.4 mg Documented by: MARIE Mouraigned by: WILL Admin: 03/29/19 09:55 Dose: 0.4 mg Documented by: PAUL Trazodone HCl (Desyrel) 150 mg PO HS [facility] Last Admin: 03/29/19 20:50 Dose: 150 mg Documented by: Admin: 03/28/19 20:39 Dose: 150 mg Documented by: DYLAN Venlafaxine HCl (Effexor) 150 mg PO BID [facility] Last Admin: 03/30/19 07:47 Dose: 150 mg Documented by: MARIE Cosigned by: WILL Admin: 03/29/19 20:50 Dose: 150 mg Documented by: Admin: 03/29/19 09:55 Dose: 150 mg Documented by: Admin: 03/28/19 20:39 Dose: 150 mg Documented by: DYLAN Shift Summary 03/30/19 05:20 Shift Summary by Josie Villarreal Pt A/O x4, up in room to BSC w/FWW. IV NS to port right chest. NS @ 150. Colostomy RLQ, Midline incision/zafar. No drainage. Small wound to left buttock, open to air. One dose Dilaudid this shift. Initialized on 03/30/19 05:20 - END OF NOTE
[2019-03-30] MEDS ORDERED: HEPARIN SODIUM,PORCINE/PF 500 UNIT/5 ML SYRINGE IV ONE (14:16)
== END 2019-03-30 15:22 | disposition home or self-care (01) | DRG 394 ==
LOC: ED 00:08 → MEDSUR 05:17
PROVIDERS: ADMIT Family Medicine Adult Medicine; ATTEND Family Medicine Adult Medicine

== ENCOUNTER 2022-11-18 22:46 | Inpatient (IN) ==
[2022-11-18] MEDS ORDERED: IOPAMIDOL 100 ML BOTTLE IV ONE (22:47)
[2022-11-18] MEDS ORDERED: ONDANSETRON 4 MG/2 ML VIAL IV ONE (23:05)
[2022-11-18] MEDS ORDERED: morphine 4 MG/ML VIAL IV ONE (23:05)
[2022-11-18 23:34] LABS: POC Calcium, Ionized 1.12 (1.16-1.32); POC Creatinine 1.3 (0.6-1.2); POC Potassium 4.2 (3.3-5.1)
[2022-11-18 23:37] LABS: POC Calcium, Ionized 1.11 (1.16-1.32); POC Creatinine 1.2 (0.6-1.2); POC Potassium 4.1 (3.3-5.1)
[2022-11-18] MEDS ORDERED: 0.9 % SODIUM CHLORIDE 1,000 ML IV ONE (23:37)
[2022-11-18 23:52] LABS: Basophils # (Auto) 0.04 K/mcL (0.00-0.30); Basophils % (Auto) 0.3 % (0.0-2.0); Eosinophils # (Auto) 0.19 K/mcL (0.00-0.70); Eosinophils % (Auto) 1.3 % (0.0-7.0); Hematocrit 39.9 % (34.1-44.9); Hemoglobin 12.7 g/dL (11.2-15.7); Lymphocytes # (Auto) 1.25 K/mcL (1.50-4.80); Lymphocytes % (Auto) 8.3 % (15.5-49.0); Mean Cell Volume 93.4 fL (80.0-100.0); Mean Corpuscular HGB Conc 31.8 g/dL (31.0-36.0); Mean Platelet Volume 9.7 fL (8.8-12.5); Monocytes # (Auto) 0.82 K/mcL (0.10-0.90); Monocytes % (Auto) 5.4 % (1.0-12.0); Neutrophils % (Auto) 84.4 % (38.0-78.0); Platelet Count 243 K/mcL (140-440); RBC 4.27 M/mcL (3.59-5.38); Red Cell Distribution Width 14.7 % (11.5-14.5); WBC 15.1 K/mcL (4.5-11.0)
[2022-11-19 00:18] LABS: ALT/SGPT 15 U/L (<40); AST/SGOT 15 U/L (<32); Albumin 3.8 gm/dL (3.2-5.2); Alkaline Phosphatase 101 U/L (39-117); Bilirubin,Direct < 0.2 mg/dL (0-0.3); Bilirubin,Total 0.2 mg/dL (0.1-1.0); Globulin 3.9 gm/dL (2.2-3.7)
[2022-11-19 01:50] LABS: Appearance,Urine SL CLOUDY (Clear); Bacteria,Urine FEW /hpf (0); Bilirubin,Urine NEGATIVE (Negative); Color,Urine YELLOW; Culture Indicated,Urine No; Glucose,Urine (UA) NEGATIVE (Negative); Ketones,Urine 15 mg/dL (Negative); Leukocyte Esterase,Urine TRACE /uL (Negative); Mucus,Urine FEW /hpf; Nitrate,Urine NEGATIVE (Negative); Protein,Urine NEGATIVE (Negative); Specific Gravity,Urine >= 1.030 (1.000-1.035); Urine Blood SMALL ery/mcL (Negative); Urine Hyaline Cast 4 /lph (0-2); Urine RBC 5 /hpf (0-3); Urine Squamous Epithelial Cell 13 /hpf (0-4); Urine WBC 22 /hpf (0-4); Urobilinogen,Urine Normal
--- NOTE | 2022-11-19 02:08 | Emergency Department Note ---
Abdominal Pain HPI General Chief Complaint: Abdominal Pain Time Seen by Provider: 11/18/22 22:51 Source: patient Mode of arrival: ambulatory History of Present Illness HPI Narrative: Narrative: Patient presents to the emergency department with abdominal "cramping". States her symptoms started 3 hours prior to arrival. She denies any nausea or vomiting. She does have a prior history of colostomy status post perforated diverticulitis in 2017 she also has a history of cholecystectomy. She denies any fevers or chills she reports normal stool output through her ostomy. Related Data Home Medications Medication Instructions Recorded Confirmed ergocalciferol (vitamin D2) 50 mcg 5,000 unit PO DAILY 10/10/18 11/19/22 (2,000 unit) tablet multivitamin 1 tab PO QDAY 08/17/22 11/19/22 Previous Rx's Medication Instructions Recorded ibuprofen 400 mg tablet 400 mg PO BID 7 days #14 tabs 03/31/21 metoprolol tartrate 25 mg tablet 25 mg PO BID #180 tabs 02/25/22 risperidone 3 mg tablet 3 mg PO DAILY #90 tabs 05/02/22 venlafaxine 75 mg tablet See Rx Instructions PO BID 90 days 08/03/22 #540 tabs Ostomy pouches and wafers #40 ea 08/30/22 lorazepam 1 mg tablet 1 mg PO BID PRN anxiety #60 tabs 11/01/22 metformin 500 mg tablet,extended 500 mg PO BID #180 tabs 11/01/22 release 24 hr tramadol 50 mg tablet 50 mg PO TID PRN pain #90 tabs 11/01/22 Allergies Allergy/AdvReac Type Severity Reaction Status Date / Time hydrocodone [From Vicodin] AdvReac Mild Nausea Verified 11/19/22 11:59 Review of Systems ROS ROS Narrative: Narrative: All systems ED: reviewed and negative except as stated. PFSH Narrative Patient History Narrative: Narrative: Medical/Surgical/Family History All Active Problems Partial small bowel obstruction (Acute) Parastomal hernia (Acute) History of creation of ostomy (Acute) Bereavement (Acute) Chronic UTI (Acute) Labial lesion (Acute) Small bowel obstruction (Acute) Nausea & vomiting (Acute) S/P laparotomy (Acute) Elevated carbon dioxide level (Acute) Parastomal hernia with obstruction and without gangrene (Acute) Encounter for wound re-check (Acute) Wound dehiscence (Acute) Orthostasis (Chronic) Ovarian cancer (Chronic) Obesity, morbid (Chronic 05/21/14) Diabetes (Chronic) Prediabetes (Chronic 06/04/14) Breast cancer (Chronic) Hypertension, essential (Chronic) Hypoxia, sleep related (Chronic) Diverticular disease of large intestine with complication (Chronic) Peritoneal carcinomatosis (Chronic) Knee osteoarthritis (Chronic) Witnessed apneic spells (Chronic) Tourette syndrome (Chronic) Osteoarthritis (Chronic) Urinary, incontinence, stress female (Chronic) Tremor (Chronic 09/04/14) Sleep disorder, nonorganic (Chronic) Sciatica (Chronic 12/24/14) Nocturia (Chronic) 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 Constipation Depression, major (05/21/14) Diabetes Diverticular disease of large intestine with complication Diverticulitis Diverticulosis 06/19 Dysfunctional gallbladder Fungus present in urine Generalized abdominal or pelvic swelling or mass or lump (05/21/14) New diagnosis,6x6 cms epigastric regin, well circumscribed, mobile mass get cmp Get CT abdomen and pelvis with po and IV contrast. Hypertension, essential BP well controlled with lisinopril 20mg once daily. Hypoxia, sleep related Knee osteoarthritis Labial lesion Malignant pleural effusion self resolved. Nocturia (08/14/2014) Dr. Priest Nonpsychotic mental disorder (05/21/14) Tourettes disease on haldol 1mg bid for same Obesity, morbid (05/21/14) Patient loosing weight, BMI improved from 45-39 Osteoarthritis Ovarian cancer Dx Jul 2018. Finished chemo Dec 2018. Anticipates chemo in pill form. Ovarian mass, left Peritoneal carcinomatosis Physical exam Colonscopy 2013 normal diverticulosis. TDAP 2012 PAP 2012 Normal as per apt ient repeat 2016 Mammogram not indicated, s/p maya mastectomy. DEXA not indicated Pneumovac not indicated Pleural effusion Postoperative hypoxia Prediabetes (06/04/14) Recurrent right pleural effusion Renal failure 1983 Sciatica (12/24/14) Sleep disorder, nonorganic Tremor (09/04/14) Urinary, incontinence, stress female (08/14/2014) Dr. Priest Vitamin D deficiency Witnessed apneic spells Wound infection Surgical History H/O bilateral mastectomy 1998 H/O colonoscopy (06/12/14) History of bilateral carpal tunnel release 2005 History of cholecystectomy 2000 History of kidney surgery 1982 Kidney reconstruction Total knee replacement status Family History Unknown Malignant neoplasm of breast Malignant neoplasm of colon Malignant neoplasm of lung Myocardial Infarction Malignant neoplasm of prostate Mother Cerebrovascular accident (CVA) Sister Diabetes mellitus Grandmother Diabetes mellitus Arthritis Social History Smoking Status: Never smoker Alcohol Intake Frequency: a few times a week Substance Use: does not use Exam Narrative Narrative: Narrative: Vital signs noted General: Awake. Alert. No distress. HEENT: NCAT PERRL EOMI. No conjunctivitis. Membranes moist. Neck: Supple, trachea midline Cardiovascular: RRR. No murmur. No rubs. No gallops. Respiratory: No respiratory distress. Breath sounds equal. Lungs clear. Gastrointestinal: Colostomy, mildUpper abdominal tenderness to palpation there is no guarding rigidity or peritoneal signs Musculoskeletal: No pain. No soft tissue swelling. Good ROM. No signs injury Skin: Warm. Dry. No rash Neurologic: Alert and oriented x3 moves all extremities equally and fully, speech is fluent face is symmetric Course Vital Signs Vital signs: Vital Signs Temperature 97.5 F 11/18/22 22:47 Pulse Rate 132 H 11/18/22 22:47 Respiratory Rate 18 11/18/22 22:47 Blood Pressure 141/86 11/18/22 22:47 Pulse Oximetry (%) 92 11/18/22 22:47 Oxygen Delivery Method 11/18/22 22:47 Temperature 97.1 F 11/20/22 17:09 Pulse Rate 102 H 11/20/22 17:09 Respiratory Rate 20 11/20/22 17:09 Blood Pressure 143/74 11/20/22 17:09 Pulse Oximetry (%) 96 11/20/22 17:09 Oxygen Delivery Method 11/20/22 17:09 Oxygen Flow Rate (L/min) 2 11/20/22 15:39 MDM MDM Narrative Medical decision making narrative: Narrative: 62-year-old female with a history of colostomy secondary to perforated diverticulitis in 2017 presents with abdominal cramping 3 hours prior to arrival. Differential includes diverticulitis, bowel obstruction. History is obtained from patient. Prior notes from Dr. Garcia of surgery were reviewed. Patient CBC shows leukocytosis of 15,000 with left shift 84% neutrophils. Lactate is 1.8, patient's creatinine is 1.2 with a BUN of 14 hepatic function panel grossly unremarkable. Lipase 17. Patient's urinalysis does show trace leukocyte Estrace and 22 white blood cells. Few bacteria. She denies any symptoms of urinary tract infection. Patient CT scan is concerning for multiple dilated loops of small bowel. Radiologist noted transition point in the pelvis with internal fecalization of small bowel. Patient also had noted bladder wall thickening patient reports that she has had bladder issues since undergoing chemotherapy for ovarian cancer. Her prior urine analysis do show pyuria today's is actually improved from the last several. Her leukocytosis I did give a dose of cefepime prior cultures have grown E. coli and Pseudomonas sensitive to cefepime. I have spoke with Dr. Reynoso who has agreed to consult on the patient. Patient was given intravenous Zofran, morphine, 1 L of normal saline. Patient's symptoms are early in her course. She did not have any vomiting therefore I did not place an NG. Patient states earlier in the day she did have ostomy output this will be monitored closely. Since her cramping she has not had any. Lab Data Result diagrams: 11/20/22 05:17 11/20/22 05:17 Labs: Lab Results 11/18/22 11/18/22 11/18/22 Range/Units 23:18 23:18 23:18 WBC 15.1 H (4.5-11.0) K/mcL RBC 4.27 (3.59-5.38) M/mcL Hgb 12.7 (11.2-15.7) g/dL Hct 39.9 (34.1-44.9) % POC Hct 41.0 (36-48) MCV 93.4 (80.0-100.0) fL MCH 29.7 (26.0-34.0) pg MCHC 31.8 (31.0-36.0) g/dL RDW 14.7 H (11.5-14.5) % Plt Count 243 (140-440) K/mcL MPV 9.7 (8.8-12.5) fL Immature Gran % (Auto) 0.3 (0.0-0.5) % Neut % (Auto) 84.4 H (38.0-78.0) % Lymph % (Auto) 8.3 L (15.5-49.0) % Moffat % (Auto) 5.4 (1.0-12.0) % Eos % (Auto) 1.3 (0.0-7.0) % Baso % (Auto) 0.3 (0.0-2.0) % Lymph # (Auto) 1.25 L (1.50-4.80) K/mcL Moffat # (Auto) 0.82 (0.10-0.90) K/mcL Eos # (Auto) 0.19 (0.00-0.70) K/mcL Baso # (Auto) 0.04 (0.00-0.30) K/mcL Immature Gran # 0.05 (0.00-0.05) K/mcl Absolute Neutrophils 12.79 H (1.80-8.00) K/mcL POC VBG pH (7.32-7.42) POC VBG pCO2 at Temp (41-51) POC VBG pO2 (25-40) POC VBG HCO3 (24-28) POC VBG Total CO2 (25-29) POC Venous O2 Sat (40-70) POC VBG Base Excess (-2-2) VBG Lactic Acid (0.5-2) POC Sodium 138 (133-145) POC Potassium 4.2 (3.3-5.1) POC Chloride 99 (96-108) POC Total CO2 29.0 (22-30) POC BUN 14 (6-20) POC Creatinine 1.3 H (0.6-1.2) POC Glucose 195 H (70-105) POC WB Ioniz Calcium 1.12 L (1.16-1.32) Total Bilirubin 0.2 (0.1-1.0) mg/dL Direct Bilirubin < 0.2 (0-0.3) mg/dL AST 15 (<32) U/L ALT 15 (<40) U/L Alkaline Phosphatase 101 (39-117) U/L Total Protein 7.7 (5.9-8.4) gm/dL Albumin 3.8 (3.2-5.2) gm/dL Globulin 3.9 H (2.2-3.7) gm/dL Lipase 17 (7-60) U/L Urine Color Urine Appearance (Clear) Urine pH (5.0-9.0) Ur Specific [place] (1.000-1.035) Urine Protein (Negative) mg/dL Urine Glucose (UA) (Negative) mg/dL Urine Ketones (Negative) mg/dL Urine Occult Blood (Negative) shital/mcL Urine Nitrate (Negative) Urine Bilirubin (Negative) mg/dL Urine Urobilinogen mg/dL Ur Leukocyte Esterase (Negative) /uL Urine RBC (0-3) /hpf Urine WBC (0-4) /hpf Ur Squamous Epith Cells (0-4) /hpf Urine Bacteria (0) /hpf Hyaline Casts (0-2) /lph Urine Mucus (None) /hpf Ur Culture Indicated? POC Troponin I (0.00-0.08) 11/18/22 11/18/22 11/18/22 Range/Units 23:19 23:22 23:33 WBC (4.5-11.0) K/mcL RBC (3.59-5.38) M/mcL Hgb (11.2-15.7) g/dL Hct (34.1-44.9) % POC Hct 41.0 (36-48) MCV (80.0-100.0) fL MCH (26.0-34.0) pg MCHC (31.0-36.0) g/dL RDW (11.5-14.5) % Plt Count (140-440) K/mcL MPV (8.8-12.5) fL Immature Gran % (Auto) (0.0-0.5) % Neut % (Auto) (38.0-78.0) % Lymph % (Auto) (15.5-49.0) % Moffat % (Auto) (1.0-12.0) % Eos % (Auto) (0.0-7.0) % Baso % (Auto) (0.0-2.0) % Lymph # (Auto) (1.50-4.80) K/mcL Moffat # (Auto) (0.10-0.90) K/mcL Eos # (Auto) (0.00-0.70) K/mcL Baso # (Auto) (0.00-0.30) K/mcL Immature Gran # (0.00-0.05) K/mcl Absolute Neutrophils (1.80-8.00) K/mcL POC VBG pH 7.48 H (7.32-7.42) POC VBG pCO2 at Temp 40.2 L (41-51) POC VBG pO2 41 H (25-40) POC VBG HCO3 29.7 H (24-28) POC VBG Total CO2 31.0 H (25-29) POC Venous O2 Sat 80.0 H (40-70) POC VBG Base Excess 6.0 H* (-2-2) VBG Lactic Acid 1.8 (0.5-2) POC Sodium 137 (133-145) POC Potassium 4.1 (3.3-5.1) POC Chloride 98 (96-108) POC Total CO2 30.0 (22-30) POC BUN 14 (6-20) POC Creatinine 1.2 (0.6-1.2) POC Glucose 194 H (70-105) POC WB Ioniz Calcium 1.11 L (1.16-1.32) Total Bilirubin (0.1-1.0) mg/dL Direct Bilirubin (0-0.3) mg/dL AST (<32) U/L ALT (<40) U/L Alkaline Phosphatase (39-117) U/L Total Protein (5.9-8.4) gm/dL Albumin (3.2-5.2) gm/dL Globulin (2.2-3.7) gm/dL Lipase (7-60) U/L Urine Color Urine Appearance (Clear) Urine pH (5.0-9.0) Ur Specific [place] (1.000-1.035) Urine Protein (Negative) mg/dL Urine Glucose (UA) (Negative) mg/dL Urine Ketones (Negative) mg/dL Urine Occult Blood (Negative) shital/mcL Urine Nitrate (Negative) Urine Bilirubin (Negative) mg/dL Urine Urobilinogen mg/dL Ur Leukocyte Esterase (Negative) /uL Urine RBC (0-3) /hpf Urine WBC (0-4) /hpf Ur Squamous Epith Cells (0-4) /hpf Urine Bacteria (0) /hpf Hyaline Casts (0-2) /lph Urine Mucus (None) /hpf Ur Culture Indicated? POC Troponin I < 0.02 (0.00-0.08) 11/19/22 11/19/22 Range/Units 00:56 09:56 WBC (4.5-11.0) K/mcL RBC (3.59-5.38) M/mcL Hgb (11.2-15.7) g/dL Hct (34.1-44.9) % POC Hct (36-48) MCV (80.0-100.0) fL MCH (26.0-34.0) pg MCHC (31.0-36.0) g/dL RDW (11.5-14.5) % Plt Count (140-440) K/mcL MPV (8.8-12.5) fL Immature Gran % (Auto) (0.0-0.5) % Neut % (Auto) (38.0-78.0) % Lymph % (Auto) (15.5-49.0) % Moffat % (Auto) (1.0-12.0) % Eos % (Auto) (0.0-7.0) % Baso % (Auto) (0.0-2.0) % Lymph # (Auto) (1.50-4.80) K/mcL Moffat # (Auto) (0.10-0.90) K/mcL Eos # (Auto) (0.00-0.70) K/mcL Baso # (Auto) (0.00-0.30) K/mcL Immature Gran # (0.00-0.05) K/mcl Absolute Neutrophils (1.80-8.00) K/mcL POC VBG pH (7.32-7.42) POC VBG pCO2 at Temp (41-51) POC VBG pO2 (25-40) POC VBG HCO3 (24-28) POC VBG Total CO2 (25-29) POC Venous O2 Sat (40-70) POC VBG Base Excess (-2-2) VBG Lactic Acid 1.5 (0.5-2) POC Sodium (133-145) POC Potassium (3.3-5.1) POC Chloride (96-108) POC Total CO2 (22-30) POC BUN (6-20) POC Creatinine (0.6-1.2) POC Glucose (70-105) POC WB Ioniz Calcium (1.16-1.32) Total Bilirubin (0.1-1.0) mg/dL Direct Bilirubin (0-0.3) mg/dL AST (<32) U/L ALT (<40) U/L Alkaline Phosphatase (39-117) U/L Total Protein (5.9-8.4) gm/dL Albumin (3.2-5.2) gm/dL Globulin (2.2-3.7) gm/dL Lipase (7-60) U/L Urine Color Yellow Urine Appearance Sl cloudy A (Clear) Urine pH 6.0 (5.0-9.0) Ur Specific [place] >= 1.030 (1.000-1.035) Urine Protein Negative (Negative) mg/dL Urine Glucose (UA) Negative (Negative) mg/dL Urine Ketones 15 A (Negative) mg/dL Urine Occult Blood Small A (Negative) shital/mcL Urine Nitrate Negative (Negative) Urine Bilirubin Negative (Negative) mg/dL Urine Urobilinogen Normal mg/dL Ur Leukocyte Esterase Trace A (Negative) /uL Urine RBC 5 H (0-3) /hpf Urine WBC 22 H (0-4) /hpf Ur Squamous Epith Cells 13 H (0-4) /hpf Urine Bacteria Few A (0) /hpf Hyaline Casts 4 H (0-2) /lph Urine Mucus Few A (None) /hpf Ur Culture Indicated? No POC Troponin I (0.00-0.08) Discharge Plan Patient/Caregiver Discharge Instructions Pt seen by CERTIFIED PERSONAL TRAINER/PA only: No Clinical Impression: Complete small bowel obstruction Activity: increase activity as tolerated Patient Disposition: Xfer As Inpt ([facility]) Condition: Fair Discharge Date/Time: 11/19/22 10:43
[2022-11-19] MEDS ORDERED: CEFEPIME 1 GM VIAL IV ONE (02:53)
[2022-11-19] MEDS ORDERED: ONDANSETRON 4 MG/2 ML VIAL IV PRN ×2 (02:54→09:39)
[2022-11-19] MEDS ORDERED: LACTATED RINGERS 1,000 ML IV SCH (03:00)
[2022-11-19] MEDS: morphine 4 MG/ML VIAL IV PRN ×2 (03:42→08:14)
[2022-11-19] MEDS ORDERED: METOCLOPRAMIDE 10 MG/2 ML VIAL IV ONE (08:21)
[2022-11-19] MEDS ORDERED: DEXTROSE 50% 50 ML VIAL IV PRN (09:39)
[2022-11-19] MEDS ORDERED: morphine 4 MG/ML VIAL IV PRN (09:39)
[2022-11-19] MEDS ORDERED: IPRATROPIUM/ALBUTEROL 3 ML AMPUL.NEB NEB PRN (09:39)
[2022-11-19] MEDS ORDERED: PROCHLORPERAZINE 10 MG/2 ML VIAL IV PRN (09:39)
[2022-11-19] MEDS ORDERED: KETOROLAC 30 MG/ML VIAL IV PRN (09:39)
[2022-11-19] MEDS ORDERED: traZODone HCL 50 MG TABLET PO PRN (09:39)
[2022-11-19] MEDS ORDERED: ACETAMINOPHEN 325 MG TABLET PO PRN (09:39)
[2022-11-19] MEDS ORDERED: DEXTROSE 31 GM ORAL.SUSP PO PRN (09:39)
--- NOTE | 2022-11-19 09:41 | Internal Med History&Physical ---
HPI History of Present Illness Patient information: Note initiated : 11/19/22 at 9:35 am Service Date, if different from initiated Date: [] Patient: Yen Patrick a 62 y/o F admitted on for Abdominal Pain. Chief Complaint: [abdominal pain, nausea ] Chief complaint: abdominal pain, nausea History of present illness: Ms. Johanna Valente is a 62 year old F history of ovarian cancer, diverticulitis with bowel perforation status post partial colectomy and colostomy placement in 2017, type 2 diabetes mellitus, anxiety/depressions, presenting with 1 day history of acute onset abdominal pain and nausea. No prior similar complaints. 3 hours prior to ED presentations, she is presenting with left upper quadrant abdominal cramping constant pain rated 9 out of 10 in severity with associated nausea minus vomiting. She feels like she has been passing gas but no colostomy output. No alleviating or exacerbating factors. She presented to the ED last night and abdominal/pelvis CT preliminary result suggest presence of multiple dilated bowel loops with point of obstructions in the pelvis. Labs significant for leukocytosis with WBC 15.1. UA also suggesting the presence of urinary tract infections. Admission request was called for small bowel obstructions. Constitutional Constitutional: Absent chills, excessive sweating, fatigue, fever(s) or weakness EENT Eyes: Absent blurry vision, change in vision, loss of vision or other visual disturbances Ears: Absent decreased hearing or tinnitus Nose, mouth and throat: Absent abnormal hearing, dry mouth, headache(s), nasal congestion or sore throat Cardiovascular Cardiovascular: Absent chest pain, chest pain at rest, edema, irregular heart rhythm or palpatations Respiratory Respiratory: Absent cough, dyspnea or wheezing Gastrointestinal Gastrointestinal: Present abdominal pain and nausea; Absent constipation, diarrhea or vomiting Musculoskeletal Musculoskeletal: Absent back pain, deformity, limited range of motion, muscle cramps, muscle weakness or numbness Integumentary Integumentary: Absent lesions, rash or wounds Neurological Neurological: Absent focal weakness, headache(s) or numbness Psychiatric Psychiatric: Absent anxiety, depression or hallucinations PFSH PFSH All Active Problems (Updated 11/19/22 @ 02:44 by Max Smith MD) Complete small bowel obstruction (Acute) Parastomal hernia (Acute) History of creation of ostomy (Acute) Bereavement (Acute) Chronic UTI (Acute) Labial lesion (Acute) Small bowel obstruction (Acute) Nausea & vomiting (Acute) S/P laparotomy (Acute) Elevated carbon dioxide level (Acute) Parastomal hernia with obstruction and without gangrene (Acute) Encounter for wound re-check (Acute) Wound dehiscence (Acute) Orthostasis (Chronic) Ovarian cancer (Chronic) Obesity, morbid (Chronic 05/21/14) Diabetes (Chronic) Prediabetes (Chronic 06/04/14) Breast cancer (Chronic) Hypertension, essential (Chronic) Hypoxia, sleep related (Chronic) Diverticular disease of large intestine with complication (Chronic) Peritoneal carcinomatosis (Chronic) Knee osteoarthritis (Chronic) Witnessed apneic spells (Chronic) Tourette syndrome (Chronic) Osteoarthritis (Chronic) Urinary, incontinence, stress female (Chronic) Tremor (Chronic 09/04/14) Sleep disorder, nonorganic (Chronic) Sciatica (Chronic 12/24/14) Nocturia (Chronic) 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 Constipation Depression, major (05/21/14) Diabetes Diverticular disease of large intestine with complication Diverticulitis Diverticulosis 06/19 Dysfunctional gallbladder Fungus present in urine Generalized abdominal or pelvic swelling or mass or lump (05/21/14) New diagnosis,6x6 cms epigastric regin, well circumscribed, mobile mass get cmp Get CT abdomen and pelvis with po and IV contrast. Hypertension, essential BP well controlled with lisinopril 20mg once daily. Hypoxia, sleep related Knee osteoarthritis Labial lesion Malignant pleural effusion self resolved. Nocturia (08/14/2014) Dr. Priest Nonpsychotic mental disorder (05/21/14) Tourettes disease on haldol 1mg bid for same Obesity, morbid (05/21/14) Patient loosing weight, BMI improved from 45-39 Osteoarthritis Ovarian cancer Dx Jul 2018. Finished chemo Dec 2018. Anticipates chemo in pill form. Ovarian mass, left Peritoneal carcinomatosis Physical exam Colonscopy 2013 normal diverticulosis. TDAP 2012 PAP 2012 Normal as per apt ient repeat 2016 Mammogram not indicated, s/p maya mastectomy. DEXA not indicated Pneumovac not indicated Pleural effusion Postoperative hypoxia Prediabetes (06/04/14) Recurrent right pleural effusion Renal failure 1983 Sciatica (12/24/14) Sleep disorder, nonorganic Tremor (09/04/14) Urinary, incontinence, stress female (08/14/2014) Dr. Priest Vitamin D deficiency Witnessed apneic spells Wound infection Surgical History H/O bilateral mastectomy 1998 H/O colonoscopy (06/12/14) History of bilateral carpal tunnel release 2005 History of cholecystectomy 2000 History of kidney surgery 1982 Kidney reconstruction Total knee replacement status Family History Unknown Malignant neoplasm of breast Malignant neoplasm of colon Malignant neoplasm of lung Myocardial Infarction Malignant neoplasm of prostate Mother Cerebrovascular accident (CVA) Sister Diabetes mellitus Grandmother Diabetes mellitus Arthritis Social History marital status: other: Children-2 smoking status: Never smoker alcohol intake frequency: a few times a week substance use type: does not use MEDS/ALLERGIES Home Medications and Allergies Home Medications Medication Instructions Recorded Confirmed Type ergocalciferol (vitamin D2) 50 mcg 5,000 unit PO DAILY 10/10/18 11/19/22 History (2,000 unit) tablet ibuprofen 400 mg tablet 400 mg PO BID 7 days #14 tabs 03/31/21 11/19/22 Rx metoprolol tartrate 25 mg tablet 25 mg PO BID #180 tabs 02/25/22 11/19/22 Rx risperidone 3 mg tablet 3 mg PO DAILY #90 tabs 05/02/22 11/19/22 Rx venlafaxine 75 mg tablet See Rx Instructions PO BID 90 days 08/03/22 11/19/22 Rx #540 tabs multivitamin 1 tab PO QDAY 08/17/22 11/19/22 History Ostomy pouches and wafers #40 ea 08/30/22 Rx lorazepam 1 mg tablet 1 mg PO BID PRN anxiety #60 tabs 11/01/22 11/19/22 Rx metformin 500 mg tablet,extended 500 mg PO BID #180 tabs 11/01/22 11/19/22 Rx release 24 hr tramadol 50 mg tablet 50 mg PO TID PRN pain #90 tabs 11/01/22 11/19/22 Rx Allergies Allergy/AdvReac Type Severity Reaction Status Date / Time promethazine [From Phenergan] Allergy Unknown Unknown Verified 08/23/22 10:43 acetaminophen [From Vicodin] AdvReac Mild Nausea Verified 08/23/22 10:43 hydrocodone [From Vicodin] AdvReac Mild Nausea Verified 08/23/22 10:43 EXAM Constitutional Vitals: Temp Pulse Resp BP Pulse Ox O2 Del Method O2 Flow Rate 37.3 C H 97 H 14 104/61 92 2 11/19/22 03:43 11/19/22 09:31 11/19/22 09:31 11/19/22 09:16 11/19/22 09:31 11/19/22 00:15 11/19/22 00:15 General appearance: cooperative, morbidly obese and no acute distress Head Head exam: Present atraumatic and normocephalic Eye Eye exam: Present EOMI and PERRL ENT ENT exam: Present mucous membranes moist, normal exam and normal external ear exam Neck Neck exam: Present normal inspection; Absent lymphadenopathy, tenderness or thyromegaly Respiratory Respiratory exam: Absent accessory muscle use, respiratory distress or wheezes Cardiovascular Cardiovascular exam: Present normal rate and rhythm; Absent JVD GI/Abdominal GI/Abdominal exam: Present soft, hypoactive bowel sounds and tenderness; Absent organomegaly Additional comments: Colostomy bag in place, no stool Extremities Exam Extremities exam: Present full ROM, normal capillary refill and normal inspection; Absent tenderness Neurological Exam Neurological exam: Present alert, CN II-XII intact and oriented X3; Absent motor sensory deficit Psychiatric Psychiatric exam: Present normal affect and normal mood; Absent anxious or depressed Skin Skin exam: Present dry and intact DATA Data Completed and Pending Labs: Labs from last 24 hours 11/19/22 11/18/22 11/18/22 00:56 23:33 23:22 WBC RBC Hgb Hct POC Hct 41.0 MCV MCH MCHC RDW Plt Count MPV Immature Gran % (Auto) Neut % (Auto) Lymph % (Auto) [place] % (Auto) Eos % (Auto) Baso % (Auto) Lymph # (Auto) [place] # (Auto) Eos # (Auto) Baso # (Auto) Immature Gran # Absolute Neutrophils POC VBG pH POC VBG pCO2 at Temp POC VBG pO2 POC VBG HCO3 POC VBG Total CO2 POC Venous O2 Sat POC VBG Base Excess VBG Lactic Acid POC Sodium 137 POC Potassium 4.1 POC Chloride 98 POC Total CO2 30.0 POC BUN 14 POC Creatinine 1.2 POC Glucose 194 H POC WB Ioniz Calcium 1.11 L Total Bilirubin Direct Bilirubin AST ALT Alkaline Phosphatase Total Protein Albumin Globulin Lipase Urine Color Yellow Urine Appearance Sl cloudy A Urine pH 6.0 Ur Specific [place] >= 1.030 Urine Protein Negative Urine Glucose (UA) Negative Urine Ketones 15 A Urine Occult Blood Small A Urine Nitrate Negative Urine Bilirubin Negative Urine Urobilinogen Normal Ur Leukocyte Esterase Trace A Urine RBC 5 H Urine WBC 22 H Ur Squamous Epith Cells 13 H Urine Bacteria Few A Hyaline Casts 4 H Urine Mucus Few A Ur Culture Indicated? No POC Troponin I < 0.02 11/18/22 11/18/22 11/18/22 23:19 23:18 23:18 WBC RBC Hgb Hct POC Hct 41.0 MCV MCH MCHC RDW Plt Count MPV Immature Gran % (Auto) Neut % (Auto) Lymph % (Auto) [place] % (Auto) Eos % (Auto) Baso % (Auto) Lymph # (Auto) [place] # (Auto) Eos # (Auto) Baso # (Auto) Immature Gran # Absolute Neutrophils POC VBG pH 7.48 H POC VBG pCO2 at Temp 40.2 L POC VBG pO2 41 H POC VBG HCO3 29.7 H POC VBG Total CO2 31.0 H POC Venous O2 Sat 80.0 H POC VBG Base Excess 6.0 H* VBG Lactic Acid 1.8 POC Sodium 138 POC Potassium 4.2 POC Chloride 99 POC Total CO2 29.0 POC BUN 14 POC Creatinine 1.3 H POC Glucose 195 H POC WB Ioniz Calcium 1.12 L Total Bilirubin 0.2 Direct Bilirubin < 0.2 AST 15 ALT 15 Alkaline Phosphatase 101 Total Protein 7.7 Albumin 3.8 Globulin 3.9 H Lipase 17 Urine Color Urine Appearance Urine pH Ur Specific [place] Urine Protein Urine Glucose (UA) Urine Ketones Urine Occult Blood Urine Nitrate Urine Bilirubin Urine Urobilinogen Ur Leukocyte Esterase Urine RBC Urine WBC Ur Squamous Epith Cells Urine Bacteria Hyaline Casts Urine Mucus Ur Culture Indicated? POC Troponin I 11/18/22 23:18 WBC 15.1 H RBC 4.27 Hgb 12.7 Hct 39.9 POC Hct MCV 93.4 MCH 29.7 MCHC 31.8 RDW 14.7 H Plt Count 243 MPV 9.7 Immature Gran % (Auto) 0.3 Neut % (Auto) 84.4 H Lymph % (Auto) 8.3 L [place] % (Auto) 5.4 Eos % (Auto) 1.3 Baso % (Auto) 0.3 Lymph # (Auto) 1.25 L [place] # (Auto) 0.82 Eos # (Auto) 0.19 Baso # (Auto) 0.04 Immature Gran # 0.05 Absolute Neutrophils 12.79 H POC VBG pH POC VBG pCO2 at Temp POC VBG pO2 POC VBG HCO3 POC VBG Total CO2 POC Venous O2 Sat POC VBG Base Excess VBG Lactic Acid POC Sodium POC Potassium POC Chloride POC Total CO2 POC BUN POC Creatinine POC Glucose POC WB Ioniz Calcium Total Bilirubin Direct Bilirubin AST ALT Alkaline Phosphatase Total Protein Albumin Globulin Lipase Urine Color Urine Appearance Urine pH Ur Specific [place] Urine Protein Urine Glucose (UA) Urine Ketones Urine Occult Blood Urine Nitrate Urine Bilirubin Urine Urobilinogen Ur Leukocyte Esterase Urine RBC Urine WBC Ur Squamous Epith Cells Urine Bacteria Hyaline Casts Urine Mucus Ur Culture Indicated? POC Troponin I A/P Narrative A/P Narrative: Assessment and Plans: 1. Small bowel obstruction: Inpatient med surg Consult Dr. Reynoso, recs. appreciated NPO with IV fluid D5LR@100cc/hr Zofran Compazine Toradol Morphine 2. Urinary tract infection: Blood culture Urine culture Serial lactic acid cbc w/ auto diff in the morning to trend WBC Rocephin D5LR@100cc/hr 3. T2DM: Hold oral antihypertensives HgA1c Insulin Lispro SSI q6hr Accu Check q6hr Hypoglycemia protocol NPO with IV fluid D5LR@100cc/hr 4. Anxiety/depression: Venlafaxine Risperidone Ativan GI ppx: not currently indicated DVT ppx: Lovenox Code status: Full Prognosis: guarded Disposition: inpatient med surg Time Spent With Patient Time: Total time spent is greater than 50% in coordination of care (as documented) at patient's floor/unit and/or counseling patient: Initial: Total time with patient: 55 - 74 minutes
--- NOTE | 2022-11-19 09:42 | Cat Scan Report ---
History: Upper abdominal pain, history of diverticulitis and prior partial colectomy TECHNIQUE: Following injection of intravenous nonionic contrast the patient was imaged during the portal venous phase from above the diaphragm through the pelvis. Sagittal and coronal reformats were created. The radiation exposure was limited using dose reduction technology. FINDINGS: There are thin linear bands of scar tissue in the lingula and left lower lobe. Lung bases are otherwise clear and there is no pleural effusion. Liver is normal in size. There is mild to moderate generalized fatty infiltration. No mass is present. The gallbladder has been removed. The bile ducts are nondilated. The spleen is normal in size and homogeneous. The pancreas is normal with no mass or inflammation. The adrenals are normal symmetric. There are focal cortical scars in the right kidney. Mild hydronephrosis is present. There is a transition at the ureteropelvic junction. Adjacent to the UPJ there is a surgical clip. There is no evidence of a stone or mass at this level. On the prior CT done on 03/27/19 the patient had a double pigtail ureteral stent on the right side which has since been removed. The hydronephrosis is probably due to a stricture at the UPJ. There is no evidence of a renal mass. The left kidney contains two cysts. The larger measures 1.8 cm. There is no mass stone or hydronephrosis in the left kidney. The cysts were present in 2019 but have enlarged several millimeters. The aorta and inferior vena cava are normal. There is severe atrophy of the anterior abdominal wall musculature with outward protrusion of the peritoneum. A large left parastomal hernia is present around the colostomy. This contains multiple loops of nonobstructed and noninflamed small intestine. The hernia measures 8.3 x 12.9 x 14.5 cm tree the neck is 6.5 mm in diameter. A segment of the descending colon and proximal sigmoid have been resected. There is a residual distal sigmoid and rectum which contain normal quantity of fecal material. There is significant tethering of multiple contiguous loops of small bowel and bladder, in the midline of the pelvis. There is distortion of the fat in this region. This is probably due to fibrosis following the prior surgery. This is causing a low-grade small bowel obstruction. Some of the loops of small bowel measure up to 3.3 cm in diameter. The right side of the colon is decompressed and contains a normal quantity of stool. No mass, abscess or ascites are present in the abdomen or pelvis. Urinary bladder is decompressed. Uterus and ovaries are surgically absent. Comparison with the prior CT from 03/27/19 shows the fibrosis in the mid pelvis is a new finding. 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 Large parastomal hernia around the colostomy in the left mid abdomen Mild hydronephrosis in the right kidney, most likely due to a stricture at the ureteropelvic junction. Mild fatty infiltration of the liver Interpreted and Authenticated by: [employer] 11/19/22
[2022-11-19] MEDS: cefTRIAXone 1 GM in DEXTROSE 5% IN WATER 50 ML IV SCH (10:30)
--- NOTE | 2022-11-19 10:34 | General Surgery Consult Note ---
HPI Date of Consult Consult Date: 11/19/22 Primary Care Provider: Wilfredo Munroe DO Consult Narrative Chief complaint: Abdominal cramps History of present illness: This is a pleasant 62-year-old female with a complex past medical and surgical history including perforated diverticulitis and metastatic cervical cancer for which she underwent an exploratory laparotomy and ostomy omental debulking, but was unable to undergo hysterectomy secondary to a frozen pelvis. This was all done in [place]. Since that time patient also had an attempt at a parastomal hernia repair done in [place] and she has been into the hospital several times with bowel obstructions. She has been seen by Dr. Garcia in the past, he has seen her in the clinic and has explained to her that her parastomal hernia is nonoperative at this time. She presents with 1 day history of abdominal cramping decreased ostomy output. She has no fevers chills nausea or vomiting. CT scan in the emergency room was read as a mild partial small bowel obstruction likely due to adhesions in the pelvis. I was asked to see the patient to assist with work-up. cc:: CC: Review of Systems Review of systems: All systems are reviewed, negative other than above PFSH PFSH All Active Problems Partial small bowel obstruction (Acute) Parastomal hernia (Acute) History of creation of ostomy (Acute) Bereavement (Acute) Chronic UTI (Acute) Labial lesion (Acute) Small bowel obstruction (Acute) Nausea & vomiting (Acute) S/P laparotomy (Acute) Elevated carbon dioxide level (Acute) Parastomal hernia with obstruction and without gangrene (Acute) Encounter for wound re-check (Acute) Wound dehiscence (Acute) Orthostasis (Chronic) Ovarian cancer (Chronic) Obesity, morbid (Chronic 05/21/14) Diabetes (Chronic) Prediabetes (Chronic 06/04/14) Breast cancer (Chronic) Hypertension, essential (Chronic) Hypoxia, sleep related (Chronic) Diverticular disease of large intestine with complication (Chronic) Peritoneal carcinomatosis (Chronic) Knee osteoarthritis (Chronic) Witnessed apneic spells (Chronic) Tourette syndrome (Chronic) Osteoarthritis (Chronic) Urinary, incontinence, stress female (Chronic) Tremor (Chronic 09/04/14) Sleep disorder, nonorganic (Chronic) Sciatica (Chronic 12/24/14) Nocturia (Chronic) 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 Constipation Depression, major (05/21/14) Diabetes Diverticular disease of large intestine with complication Diverticulitis Diverticulosis 06/19 Dysfunctional gallbladder Fungus present in urine Generalized abdominal or pelvic swelling or mass or lump (05/21/14) New diagnosis,6x6 cms epigastric regin, well circumscribed, mobile mass get cmp Get CT abdomen and pelvis with po and IV contrast. Hypertension, essential BP well controlled with lisinopril 20mg once daily. Hypoxia, sleep related Knee osteoarthritis Labial lesion Malignant pleural effusion self resolved. Nocturia (08/14/2014) Dr. Priest Nonpsychotic mental disorder (05/21/14) Tourettes disease on haldol 1mg bid for same Obesity, morbid (05/21/14) Patient loosing weight, BMI improved from 45-39 Osteoarthritis Ovarian cancer Dx Jul 2018. Finished chemo Dec 2018. Anticipates chemo in pill form. Ovarian mass, left Peritoneal carcinomatosis Physical exam Colonscopy 2013 normal diverticulosis. TDAP 2012 PAP 2012 Normal as per apt ient repeat 2015 Mammogram not indicated, s/p maya mastectomy. DEXA not indicated Pneumovac not indicated Pleural effusion Postoperative hypoxia Prediabetes (06/04/14) Recurrent right pleural effusion Renal failure 1982 Sciatica (12/24/14) Sleep disorder, nonorganic Tremor (09/04/14) Urinary, incontinence, stress female (08/14/2014) Dr. Priest Vitamin D deficiency Witnessed apneic spells Wound infection Surgical History H/O bilateral mastectomy 1998 H/O colonoscopy (06/12/14) History of bilateral carpal tunnel release 2006 History of cholecystectomy 2000 History of kidney surgery 1982 Kidney reconstruction Total knee replacement status Family History Unknown Malignant neoplasm of breast Malignant neoplasm of colon Malignant neoplasm of lung Myocardial Infarction Malignant neoplasm of prostate Mother Cerebrovascular accident (CVA) Sister Diabetes mellitus Grandmother Diabetes mellitus Arthritis Social History marital status: other: Children-2 smoking status: Never smoker alcohol intake frequency: a few times a week substance use type: does not use MEDS/ALLERGIES Home Medications and Allergies Home Medications Medication Instructions Recorded Confirmed Type ergocalciferol (vitamin D2) 50 mcg 5,000 unit PO DAILY 10/10/18 11/19/22 History (2,000 unit) tablet ibuprofen 400 mg tablet 400 mg PO BID 7 days #14 tabs 03/31/21 11/19/22 Rx metoprolol tartrate 25 mg tablet 25 mg PO BID #180 tabs 02/25/22 11/19/22 Rx risperidone 3 mg tablet 3 mg PO DAILY #90 tabs 05/02/22 11/19/22 Rx venlafaxine 75 mg tablet See Rx Instructions PO BID 90 days 08/03/22 11/19/22 Rx #540 tabs multivitamin 1 tab PO QDAY 08/17/22 11/19/22 History Ostomy pouches and wafers #40 ea 08/30/22 Rx lorazepam 1 mg tablet 1 mg PO BID PRN anxiety #60 tabs 11/01/22 11/19/22 Rx metformin 500 mg tablet,extended 500 mg PO BID #180 tabs 11/01/22 11/19/22 Rx release 24 hr tramadol 50 mg tablet 50 mg PO TID PRN pain #90 tabs 11/01/22 11/19/22 Rx Allergies Allergy/AdvReac Type Severity Reaction Status Date / Time promethazine [From Phenergan] Allergy Unknown Unknown Verified 08/23/22 10:43 acetaminophen [From Vicodin] AdvReac Mild Nausea Verified 08/23/22 10:43 hydrocodone [From Vicodin] AdvReac Mild Nausea Verified 08/23/22 10:43 Physical Examination Vital Signs Vital signs: Temp Pulse Resp BP Pulse Ox O2 Del Method O2 Flow Rate 99.2 F H 97 H 22 104/61 92 2 11/19/22 03:43 11/19/22 09:31 11/19/22 10:25 11/19/22 09:16 11/19/22 09:31 11/19/22 00:15 11/19/22 00:15 General physical appearance General physical exam: well developed, well nourished, no distress and obese Eyes Eye exam: PERRL and normal ocular movement ENT ENT exam: normal pinna, normal nares, normal mucosa, no hearing loss and no congestion Head Head exam IM: Present atraumatic and normocephalic Neck Neck exam: no masses, no bruits, trachea midline, no lymphadenopathy and no venous distension Cardiovascular Cardiovascular exam IM: Present normal rate and rhythm Respiratory Respiratory exam: normal expansion, normal respiratory effort, clear to percussion and clear to auscultation Abdomen Abdomen: Present soft, non tender and bowel sounds Hernia: Present incisional (Parastomal) Genitourinary Genitourinary (Female): Present normal external genitalia Rectum Rectum: Present normal sphincter tone, no hemorrhoids, no tenderness, no masses and no bleeding Integumentary Integumentary: Present no rash, no growths and no abnormal pigmentation Neurologic Neurologic: Present normal coordination and normal sensation Musculoskeletal Musculoskeletal: Present normal gait and normal posture Psychiatric Psychiatric: Present oriented to time, oriented to person, oriented to place, speech is normal and memory intact Results Labs Result diagrams: 11/18/22 23:18 Labs: Abnormal lab results 11/18/22 11/18/22 11/18/22 Range/Units 23:18 23:18 23:18 WBC 15.1 H (4.5-11.0) K/mcL RDW 14.7 H (11.5-14.5) % Neut % (Auto) 84.4 H (38.0-78.0) % Lymph % (Auto) 8.3 L (15.5-49.0) % Lymph # (Auto) 1.25 L (1.50-4.80) K/mcL Absolute Neutrophils 12.79 H (1.80-8.00) K/mcL POC VBG pH (7.32-7.42) POC VBG pCO2 at Temp (41-51) POC VBG pO2 (25-40) POC VBG HCO3 (24-28) POC VBG Total CO2 (25-29) POC Venous O2 Sat (40-70) POC VBG Base Excess (-2-2) POC Creatinine 1.3 H (0.6-1.2) POC Glucose 195 H (70-105) POC WB Ioniz Calcium 1.12 L (1.16-1.32) Globulin 3.9 H (2.2-3.7) gm/dL Urine Appearance (Clear) Urine Ketones (Negative) mg/dL Urine Occult Blood (Negative) shital/mcL Ur Leukocyte Esterase (Negative) /uL Urine RBC (0-3) /hpf Urine WBC (0-4) /hpf Ur Squamous Epith Cells (0-4) /hpf Urine Bacteria (0) /hpf Hyaline Casts (0-2) /lph Urine Mucus (None) /hpf 11/18/22 11/18/22 11/19/22 Range/Units 23:19 23:33 00:56 WBC (4.5-11.0) K/mcL RDW (11.5-14.5) % Neut % (Auto) (38.0-78.0) % Lymph % (Auto) (15.5-49.0) % Lymph # (Auto) (1.50-4.80) K/mcL Absolute Neutrophils (1.80-8.00) K/mcL POC VBG pH 7.48 H (7.32-7.42) POC VBG pCO2 at Temp 40.2 L (41-51) POC VBG pO2 41 H (25-40) POC VBG HCO3 29.7 H (24-28) POC VBG Total CO2 31.0 H (25-29) POC Venous O2 Sat 80.0 H (40-70) POC VBG Base Excess 6.0 H* (-2-2) POC Creatinine (0.6-1.2) POC Glucose 194 H (70-105) POC WB Ioniz Calcium 1.11 L (1.16-1.32) Globulin (2.2-3.7) gm/dL Urine Appearance Sl cloudy A (Clear) Urine Ketones 15 A (Negative) mg/dL Urine Occult Blood Small A (Negative) shital/mcL Ur Leukocyte Esterase Trace A (Negative) /uL Urine RBC 5 H (0-3) /hpf Urine WBC 22 H (0-4) /hpf Ur Squamous Epith Cells 13 H (0-4) /hpf Urine Bacteria Few A (0) /hpf Hyaline Casts 4 H (0-2) /lph Urine Mucus Few A (None) /hpf Diabetes panel 11/18/22 Range/Units 23:18 AST 15 (<32) U/L ALT 15 (<40) U/L Alkaline Phosphatase 101 (39-117) U/L Total Protein 7.7 (5.9-8.4) gm/dL Albumin 3.8 (3.2-5.2) gm/dL Calcium panel 11/18/22 Range/Units 23:18 Albumin 3.8 (3.2-5.2) gm/dL Adrenal panel 11/18/22 Range/Units 23:18 Total Bilirubin 0.2 (0.1-1.0) mg/dL AST 15 (<32) U/L ALT 15 (<40) U/L Alkaline Phosphatase 101 (39-117) U/L Total Protein 7.7 (5.9-8.4) gm/dL Albumin 3.8 (3.2-5.2) gm/dL All other labs normal. Imaging CT scan - abdomen: image reviewed A/P Assessment and plan (1) Partial small bowel obstruction: Status: Acute (2) Parastomal hernia: Status: Acute (3) History of creation of ostomy: Status: Acute Plan This is a pleasant 62-year-old female who presents with a partial small bowel obstruction. She is not a surgical candidate secondary to her failed parastomal hernia, history of metastatic ovarian cancer, and radiation to the pelvis. Will treat conservatively with NG tube, will do a small bowel follow-through to evaluate for possible resolution.. Continue with conservative management at this time. Time Spent With Patient Time: Total time spent is greater than 50% in coordination of care (as documented) at patient's floor/unit and/or counseling patient:
[2022-11-19] MEDS ORDERED: LORazepam 1 MG TABLET PO PRN (10:48)
[2022-11-19] MEDS ORDERED: traMADol 50 MG TABLET PO PRN (10:49)
[2022-11-19] MEDS ORDERED: IBUPROFEN 200 MG TABLET PO PRN (10:50)
[2022-11-19] MEDS: INSULIN LISPRO 1 UNIT/0.01 ML UNIT SQ SCH ×2 (13:03→17:12)
[2022-11-19] MEDS: DEXTROSE 5%-LR 1,000 ML IV SCH ×3 (13:04→21:14)
[2022-11-19] MEDS: 0.9 % SODIUM CHLORIDE 10 ML SYRINGE IV SCH ×2 (14:35→21:06)
[2022-11-19] MEDS ORDERED: VENLAFAXINE 75 MG TABLET PO SCH (21:00)
[2022-11-19] MEDS: METOPROLOL TARTRATE 25 MG TABLET PO SCH (21:28)
[2022-11-20] MEDS: INSULIN LISPRO 1 UNIT/0.01 ML UNIT SQ SCH ×3 (00:15→11:13)
[2022-11-20] MEDS: DEXTROSE 5%-LR 1,000 ML IV SCH ×3 (01:22→16:19)
[2022-11-20] MEDS: 0.9 % SODIUM CHLORIDE 10 ML SYRINGE IV SCH ×2 (06:03→12:04)
[2022-11-20 07:02] LABS: Basophils # (Auto) 0.02 K/mcL (0.00-0.30); Basophils % (Auto) 0.2 % (0.0-2.0); Eosinophils # (Auto) 0.18 K/mcL (0.00-0.70); Hematocrit 35.6 % (34.1-44.9); Lymphocytes # (Auto) 0.92 K/mcL (1.50-4.80); Lymphocytes % (Auto) 10.1 % (15.5-49.0); Mean Cell Volume 96.7 fL (80.0-100.0); Mean Corpuscular HGB Conc 30.9 g/dL (31.0-36.0); Mean Platelet Volume 10.1 fL (8.8-12.5); Monocytes # (Auto) 0.72 K/mcL (0.10-0.90); Monocytes % (Auto) 7.9 % (1.0-12.0); Neutrophils % (Auto) 79.6 % (38.0-78.0); Platelet Count 207 K/mcL (140-440); RBC 3.68 M/mcL (3.59-5.38); Red Cell Distribution Width 15.1 % (11.5-14.5); WBC 9.2 K/mcL (4.5-11.0)
[2022-11-20 07:08] LABS: ALT/SGPT 13 U/L (<40); AST/SGOT 12 U/L (<32); Albumin 3.3 gm/dL (3.2-5.2); Albumin/Globulin Ratio 0.9 (1.0-2.3); Alkaline Phosphatase 81 U/L (39-117); Bilirubin,Total 0.4 mg/dL (0.1-1.0); Blood Urea Nitrogen 15 mg/dL (8-23); Calcium 8.7 mg/dL (8.6-10.4); Carbon Dioxide 30 mmol/L (22-30); Chloride 99 mmol/L (96-108); Globulin 3.6 gm/dL (2.2-3.7); Glomerular Filtration Rate 79; Glucose 191 mg/dL (70-105)
[2022-11-20] MEDS: risperiDONE 1 MG TABLET PO SCH ×2 (08:34→09:09)
[2022-11-20] MEDS: METOPROLOL TARTRATE 25 MG TABLET PO SCH ×2 (08:34→09:09)
[2022-11-20] MEDS: VENLAFAXINE 75 MG TABLET PO SCH ×2 (08:34→09:08)
--- NOTE | 2022-11-20 08:45 | Internal Med Progress Note ---
SUBJECTIVE Subjective Patient information: Note initiated : 11/20/22 at 8:39 am Service Date, if different from initiated Date: [] Patient: Yen Patrick a 62 y/o F admitted on 11/19/22 for Abdominal Pain. Chief Complaint: [] Interval history: Ms. Johanna Valente is a 62 year old F history of ovarian cancer, diverticulitis with bowel perforation s/p partial colectomy and colostomy placement in 2017, type 2 diabetes mellitus, anxiety/depressions, presenting with 1 day history of acute onset abdominal pain and nausea. No prior similar complaints. 3 hours prior to ED presentations, she is presenting with left upper quadrant abdominal cramping constant pain rated 9 out of 10 in severity with associated nausea minus vomiting. She feels like she has been passing gas but no colostomy output. No alleviating or exacerbating factors. She presented to the ED last night and abdominal/pelvis CT preliminary result suggest presence of multiple dilated bowel loops with point of obstructions in the pelvis. Labs significant for leukocytosis with WBC 15.1. UA also suggesting the presence of urinary tract infections. Admission request was called for small bowel obstructions. 11/20: s/p NG tube placement and small bowel follow-through. She had quite a lot of NG tube output as well as ostomy output. Blood and urine cultures no growth to date. She currently denies any abdominal pain. She denies any nausea or vomiting. She is coming of headaches. Will check with Dr. Reynoso regarding whether we can start feeding the patient with clear liquid diet or not today. We will also talk with Dr. Reynoso regarding the timing of discontinuing NG tube. We will continue to provide narcotics and antiemetics for symptoms control. Constitutional Vitals: Vital Signs Temp Pulse Resp BP Pulse Ox O2 Del Method O2 Flow Rate 36.4 C 108 H 16 157/80 97 2 11/20/22 07:35 11/20/22 07:35 11/20/22 07:35 11/20/22 07:35 11/20/22 07:35 11/20/22 07:35 11/20/22 07:35 Period Temp Pulse Resp BP Sys/[place] Pulse Ox O2 Del Method O2 Flow Rate Last 24 Hr 36.4 C-37.3 C 97-110 12-22 104-157/61-87 91-97 Nasal Cannula- Nasal Cannula 2-2 Intake and Output 11/19/22 11/20/22 11/20/22 19:59 03:59 11:59 Intake Total 1000 1000 120 Output Total 1650 100 625 Balance -650 900 -505 Weight 133.81 kg 132.052 kg Intake & Output: Intake & Output 11/19/22 11/20/22 11/20/22 19:59 03:59 11:59 Intake Total 1000 1000 120 Output Total 1650 100 625 Balance -650 900 -505 Weight 133.81 kg 132.052 kg Intake: IV 1000 1000 Dextrose 5%-Lactated Ringers 1, 1000 000 ml @ 100 mls/hr IV .Q10H [facility] Rx#:[id number] Lactated Ringers 1,000 ml @ 84 1000 mls/hr IV .[id number] [facility] Rx#: [id number] Oral 120 Tube Feeding 0 0 0 Output: Gastric Drainage 100 350 Right Nare 100 350 Void Amount 600 150 Stool 1050 125 Other: Meal npo Percent of Meal Consumed NPO Urine Appearance Clear Clear Urine Color Dark Yellow Dark Yellow Urine Odor Normal Stool Size Large Stool Color Green Green Stool Consistency Liquid Loose # Bowel Movements 1 General appearance: cooperative and no acute distress Head Head exam: Present atraumatic and normal inspection Eye Eye exam: Present normal appearance ENT ENT exam: Present mucous membranes moist, normal exam and normal external ear exam Additional comments: NG tube in place Neck Neck exam: Present normal inspection Respiratory Respiratory exam: Present normal respiratory exam Cardiovascular Cardiovascular exam: Present normal rate and rhythm GI/Abdominal GI/Abdominal exam: Present hyperactive bowel sounds Additional comments: Ostomy bag in place Back Exam Back exam: Present normal inspection Neurological Exam Neurological exam: Present alert and oriented X3 Skin Skin exam: Present intact and warm OBJ DATA Labs CBC & Chem 7: 11/20/22 05:17 11/20/22 05:17 Labs: Abnormal Lab Results 11/20/22 11/20/22 11/19/22 05:17 05:17 00:56 WBC Hgb 11.0 L MCHC 30.9 L RDW 15.1 H Neut % (Auto) 79.6 H Lymph % (Auto) 10.1 L Lymph # (Auto) 0.92 L Absolute Neutrophils POC VBG pH POC VBG pCO2 at Temp POC VBG pO2 POC VBG HCO3 POC VBG Total CO2 POC Venous O2 Sat POC VBG Base Excess POC Creatinine Glucose 191 H POC Glucose POC WB Ioniz Calcium Globulin Albumin/Globulin Ratio 0.9 L Urine Appearance Sl cloudy A Urine Ketones 15 A Urine Occult Blood Small A Ur Leukocyte Esterase Trace A Urine RBC 5 H Urine WBC 22 H Ur Squamous Epith Cells 13 H Urine Bacteria Few A Hyaline Casts 4 H Urine Mucus Few A 11/18/22 11/18/22 11/18/22 23:33 23:19 23:18 WBC Hgb MCHC RDW Neut % (Auto) Lymph % (Auto) Lymph # (Auto) Absolute Neutrophils POC VBG pH 7.48 H POC VBG pCO2 at Temp 40.2 L POC VBG pO2 41 H POC VBG HCO3 29.7 H POC VBG Total CO2 31.0 H POC Venous O2 Sat 80.0 H POC VBG Base Excess 6.0 H* POC Creatinine 1.3 H Glucose POC Glucose 194 H 195 H POC WB Ioniz Calcium 1.11 L 1.12 L Globulin Albumin/Globulin Ratio Urine Appearance Urine Ketones Urine Occult Blood Ur Leukocyte Esterase Urine RBC Urine WBC Ur Squamous Epith Cells Urine Bacteria Hyaline Casts Urine Mucus 11/18/22 11/18/22 23:18 23:18 WBC 15.1 H Hgb MCHC RDW 14.7 H Neut % (Auto) 84.4 H Lymph % (Auto) 8.3 L Lymph # (Auto) 1.25 L Absolute Neutrophils 12.79 H POC VBG pH POC VBG pCO2 at Temp POC VBG pO2 POC VBG HCO3 POC VBG Total CO2 POC Venous O2 Sat POC VBG Base Excess POC Creatinine Glucose POC Glucose POC WB Ioniz Calcium Globulin 3.9 H Albumin/Globulin Ratio Urine Appearance Urine Ketones Urine Occult Blood Ur Leukocyte Esterase Urine RBC Urine WBC Ur Squamous Epith Cells Urine Bacteria Hyaline Casts Urine Mucus Meds: Medications Acetaminophen (Acetaminophen 325 Mg Tablet) 650 mg PO Q6HP PRN; Protocol PRN Reason: Per Pain Protocol/Fever > 101 Albuterol/Ipratropium (Ipratropium/Albuterol 3 Ml Ampul.Neb) 3 ml NEB Q4HRT PRN PRN Reason: Wheezing Dextrose (Dextrose 50% 50 Ml Vial) 0 ml IV UD PRN PRN Reason: Per Sliding Scale Diagnostic Test (Pha) (Accu-Chek 1 Each Strip) 1 each FS Q6 [facility] Last Admin: 11/20/22 06:15 Dose: 1 each Enoxaparin Sodium (Enoxaparin 40 Mg/0.4 Ml Syringe) 40 mg SQ DAILY [facility] Last Admin: 11/20/22 08:35 Dose: 40 mg Glucose (Dextrose 31 Gm Oral.Susp) 15 gm PO PRN PRN PRN Reason: Hypoglycemia Ceftriaxone Sodium 1 gm/ (Dextrose) 50 mls @ 100 mls/hr IV Q24H [facility]; Protocol Last Infusion: 11/19/22 10:31 Dose: Infused Dextrose/Lactated Ringer's (Dextrose 5%-Lactated Ringers) 1,000 mls @ 100 mls/hr IV .Q10H [facility] Last Admin: 11/20/22 01:22 Dose: 100 mls/hr Ibuprofen (Ibuprofen 200 Mg Tablet) 400 mg PO BIDP PRN PRN Reason: Pain Insulin Human Lispro (Insulin Lispro 1 Unit/0.01 Ml Unit) 0 unit SQ Q6 [facility]; Protocol Last Admin: 11/20/22 07:30 Dose: 2 units Ketorolac Tromethamine (Ketorolac 30 Mg/Ml Vial) 30 mg IV Q6HP PRN; Protocol PRN Reason: Per Pain Protocol Stop: 11/21/22 09:30 Last Admin: 11/19/22 17:45 Dose: 30 mg Lorazepam (Lorazepam 1 Mg Tablet) 1 mg PO BIDP PRN PRN Reason: anxiety Metoprolol Tartrate (Metoprolol Tartrate 25 Mg Tablet) 25 mg PO BID [facility] Last Admin: 11/20/22 08:34 Dose: Not Given Morphine Sulfate (Morphine 4 Mg/Ml Vial) 4 mg IV Q4HP PRN; Protocol PRN Reason: Per Pain Protocol Last Admin: 11/19/22 14:52 Dose: 4 mg Ondansetron HCl (Ondansetron 4 Mg/2 Ml Vial) 4 mg IV Q6HP PRN PRN Reason: Nausea And Vomiting Last Admin: 11/19/22 14:51 Dose: 4 mg Prochlorperazine (Prochlorperazine 10 Mg/2 Ml Vial) 5 mg IV Q4HP PRN PRN Reason: Nausea And Vomiting Last Admin: 11/19/22 17:44 Dose: 5 mg Risperidone (Risperidone 1 Mg Tablet) 3 mg PO DAILY [facility] Last Admin: 11/20/22 08:34 Dose: Not Given Sodium Chloride (0.9 % Sodium Chloride 10 Ml Syringe) 10 ml IV Q8 [facility] Last Admin: 11/20/22 06:03 Dose: Not Given Tramadol HCl (Tramadol 50 Mg Tablet) 50 mg PO TIDP PRN PRN Reason: Pain Trazodone HCl (Trazodone Hcl 50 Mg Tablet) 25 mg PO HSP PRN PRN Reason: Insomnia Venlafaxine HCl (Venlafaxine 75 Mg Tablet) 225 mg PO DAILY [facility] Last Admin: 11/20/22 08:34 Dose: Not Given Venlafaxine HCl (Venlafaxine 75 Mg Tablet) 150 mg PO HS [facility] Last Admin: 11/19/22 21:29 Dose: 150 mg A/P Narrative A/P Narrative: Assessment and Plans: 1. Small bowel obstruction: Inpatient med surg Consult Dr. Reynoso, recs. appreciated NG tube low intermittent suction, will check with Dr. Reynoso regarding the timing to discontinue NG tube NPO with IV fluid D5LR@100cc/hr, will check with Dr. Reynoso regarding the timing to start feeding patient with clear liquid diet Zofran Compazine Toradol Morphine 2. Urinary tract infection: Blood culture, no growth to date Urine culture, no growth to date Serial lactic acid cbc w/ auto diff in the morning to trend WBC Rocephin D5LR@100cc/hr 3. T2DM: Hold oral antihypertensives HgA1c 7.3 Insulin Lispro SSI q6hr Accu Check q6hr Hypoglycemia protocol NPO with IV fluid D5LR@100cc/hr, will check with Dr. Reynoso regarding the timing to start feeding patient with clear liquid diet 4. Anxiety/depression: Venlafaxine Risperidone Ativan GI ppx: not currently indicated DVT ppx: Lovenox Code status: Full Prognosis: Stable Disposition: inpatient med surg Time Spent With Patient Time: Total time spent is greater than 50% in coordination of care (as documented) at patient's floor/unit and/or counseling patient: Subsequent: Total time with patient: 35 - 49 minutes QUALITY VTE Deep Vein Thrombosis/Pulmonary Embolism Present on Admission: No
[2022-11-20] MEDS ORDERED: ENOXAPARIN 40 MG/0.4 ML SYRINGE SQ SCH (09:00)
--- NOTE | 2022-11-20 09:28 | XRay Report ---
HISTORY: Small bowel obstruction FINDINGS: The hockey scout film of the abdomen shows a nasogastric tube in the upper fundus of the stomach. There is contrast in the kidneys and bladder following the preceding abdominal CT. The large and small intestine are normal and normally distended. Patient was given oral Gastrografin contrast mixed 50-50 with water. Serial images were obtained. Patient has a partial gastric outlet obstruction. There is a moderate amount retained contrast in the stomach up to three hours post ingestion. Contrast began passing into the small bowel at two hours. At three hours the contrast had reached the ascending colon. Transition point is not identified. The small intestine is not abnormally dilated. On the preceding CT scan there appeared to be fibrosis with matting of multiple loops of small bowel and bladder in the midline of the pelvis. This area is difficult to evaluate on the current exam due to dilution of the contrast with underlying fluid in the small bowel. IMPRESSION: Resolved small bowel obstruction Partial gastric outlet obstruction Interpreted and Authenticated by: [employer] 11/20/22
[2022-11-20] MEDS ORDERED: cefTRIAXone 1 GM VIAL IV SCH (10:00)
[2022-11-20] MEDS ORDERED: cefTRIAXone 1 GM VIAL ONE (10:10)
[2022-11-20] MEDS: cefTRIAXone 1 GM in DEXTROSE 5% IN WATER 50 ML IV SCH (10:18)
--- NOTE | 2022-11-20 16:17 | Discharge Summary ---
Discharge Provider Provider IMPORTANT FOLLOW-UP INFORMATION FOR PCP: Patient information: Note initiated : 11/20/22 at 4:16 pm Service Date, if different from initiated Date: [] Patient: Yen Patrick 62 y/o F admitted on 11/19/22 for Abdominal Pain. Chief Complaint: [] Date of admission: 11/19/22 10:43 Discharge date: 11/20/22 Primary care physician: Wilfredo Munroe DO Consults: 11/19/22 Consult to Physician [CONS] Stat Comment: Consulting Provider: Hira Hampton Reason For Exam: Physician to Consult Consult to Physician [CONS] Stat Comment: Consulting Provider: Jarrett Reynoso Reason For Exam: Physician to Consult Consult to Physician [CONS] Stat Comment: Consulting Provider: Jarrett Reynoso Reason For Exam: Physician to Consult COURSE Hospital Course Hospital course: patient admitted with abdominal pain, sbo, resolved Discharge diagnosis: reloved sbo Time Spent with Patient Time attestation: Total time spent providing and/or coordinating discharge services: Time spent: Less than 30 minutes Physical Examination Vital Signs Vital signs: Temp Pulse Resp BP Pulse Ox O2 Del Method O2 Flow Rate 97.1 F 102 H 20 143/74 96 2 11/20/22 15:39 11/20/22 15:39 11/20/22 15:39 11/20/22 15:39 11/20/22 15:39 11/20/22 15:39 11/20/22 15:39 Discharge Plan Patient/Caregiver Discharge Instructions Activity: increase activity as tolerated Diet: Regular Diet Prescriptions: No Action metoprolol tartrate 25 mg tablet 25 mg PO BID Qty: 180 3RF risperidone 3 mg tablet 3 mg PO DAILY Qty: 90 3RF venlafaxine 75 mg tablet See Rx Instructions PO BID 90 Days Qty: 540 1RF Rx Instructions: 225mg qAM, 150mg qPM PO (DME) Ostomy pouches and wafers See Rx Instructions .Route .MEDSUPPLY Qty: 40 0RF Rx Instructions: Due to ongoing wound, patient needing extra monthly pouches and wafers. metformin 500 mg tablet extended release 24 hr 500 mg PO BID Qty: 180 1RF tramadol 50 mg tablet 50 mg PO TID PRN (Reason: pain) Qty: 90 0RF lorazepam 1 mg tablet 1 mg PO BID PRN (Reason: anxiety) Qty: 60 0RF ibuprofen 400 mg tablet 400 mg PO BID 7 Days Qty: 14 0RF multivitamin Tablet 1 tab PO QDAY ergocalciferol (vitamin D2) 2,000 UNIT tablet 5,000 unit PO DAILY Follow Up Plan Follow up with: Wilfredo Munroe DO [Primary Care Provider] - Patient Disposition: Home, Self-Care Discharge Orders: Discharge Order (Routine); Ordered 11/20/22 Ordered By: Jarrett Reynoso Pending Pending Pending: Resuscitation Status Resuscitate (Full Code) Diet Regular Diet Start Sun Nov 20 838 Acetaminophen (Acetaminophen 325 Mg Tablet) 650 mg PO Q6HP PRN; Protocol PRN Reason: Per Pain Protocol/Fever > 101 Last Admin: 11/20/22 09:28 Dose: 650 mg Documented By: SURYA Ceftriaxone Sodium (Ceftriaxone 1 Gm Vial) 1 gm IV Q24H [facility] Last Admin: 11/20/22 10:13 Dose: 1 gm Documented By: SURYA Diagnostic Test (Pha) (Accu-Chek 1 Each Strip) 1 each FS Q6 [facility] Last Admin: 11/20/22 11:08 Dose: 1 each Documented By: Admin: 11/20/22 06:15 Dose: 1 each Documented By: Admin: 11/20/22 00:05 Dose: 1 each Documented By: LEONID Enoxaparin Sodium (Enoxaparin 40 Mg/0.4 Ml Syringe) 40 mg SQ DAILY [facility] Last Admin: 11/20/22 08:35 Dose: 40 mg Documented By: SURYA Dextrose/Lactated Ringer's (Dextrose 5%-Lactated Ringers) 1,000 mls @ 100 mls/hr IV .Q10H [facility] Last Infusion: 11/20/22 10:19 Dose: 0 mls/hr Documented By: Admin: 11/20/22 09:32 Dose: Not Given Documented By: Admin: 11/20/22 01:22 Dose: 100 mls/hr Documented By: Infusion: 11/20/22 00:53 Dose: 100 mls/hr Documented By: Admin: 11/19/22 21:14 Dose: Not Given Documented By: Admin: 11/19/22 14:53 Dose: 100 mls/hr Documented By: Admin: 11/19/22 13:04 Dose: Not Given Documented By: JULIETA Insulin Human Lispro (Insulin Lispro 1 Unit/0.01 Ml Unit) 0 unit SQ Q6 [facility]; Protocol Last Admin: 11/20/22 11:13 Dose: 3 units Documented By: Admin: 11/20/22 07:30 Dose: 2 units Documented By: Admin: 11/20/22 00:15 Dose: 2 units Documented By: Admin: 11/19/22 17:12 Dose: 2 units Documented By: Admin: 11/19/22 13:03 Dose: 2 units Documented By: JULIETA Ketorolac Tromethamine (Ketorolac 30 Mg/Ml Vial) 30 mg IV Q6HP PRN; Protocol PRN Reason: Per Pain Protocol Stop: 11/21/22 09:30 Last Admin: 11/19/22 17:45 Dose: 30 mg Documented By: JULIETA Metoprolol Tartrate (Metoprolol Tartrate 25 Mg Tablet) 25 mg PO BID [facility] Last Admin: 11/20/22 09:09 Dose: 25 mg Documented By: Admin: 11/19/22 21:28 Dose: 25 mg Documented By: CHARLINE Morphine Sulfate (Morphine 4 Mg/Ml Vial) 4 mg IV Q4HP PRN; Protocol PRN Reason: Per Pain Protocol Last Admin: 11/19/22 14:52 Dose: 4 mg Documented By: JULIETA Ondansetron HCl (Ondansetron 4 Mg/2 Ml Vial) 4 mg IV Q6HP PRN PRN Reason: Nausea And Vomiting Last Admin: 11/19/22 14:51 Dose: 4 mg Documented By: JULIETA Prochlorperazine (Prochlorperazine 10 Mg/2 Ml Vial) 5 mg IV Q4HP PRN PRN Reason: Nausea And Vomiting Last Admin: 11/19/22 17:44 Dose: 5 mg Documented By: JULIETA Risperidone (Risperidone 1 Mg Tablet) 3 mg PO DAILY [facility] Last Admin: 11/20/22 09:09 Dose: 3 mg Documented By: SURYA Sodium Chloride (0.9 % Sodium Chloride 10 Ml Syringe) 10 ml IV Q8 [facility] Last Admin: 11/20/22 12:04 Dose: 10 ml Documented By: Admin: 11/20/22 06:03 Dose: Not Given Documented By: Admin: 11/19/22 21:06 Dose: Not Given Documented By: Admin: 11/19/22 14:35 Dose: Not Given Documented By: JULIETA Venlafaxine HCl (Venlafaxine 75 Mg Tablet) 225 mg PO DAILY [facility] Last Admin: 11/20/22 09:08 Dose: 225 mg Documented By: SURYA Venlafaxine HCl (Venlafaxine 75 Mg Tablet) 150 mg PO HS [facility] Last Admin: 11/19/22 21:29 Dose: 150 mg Documented By: CHARLINE Shift Summary 11/20/22 11:54 Shift Summary by Iesha Vital Primary Diagnosis: (Partial SBO) Abdominal pain Registration Status: MS Date of Surgery (if applicable): N/A Pertinent Medical Dx/Issue(s): DM2, Anxiety, Depression Med management (antibiotics, diuretics, BP): Rocephin, Lopressor. Skin/Wound Care: Ostomy is putting out adequate BM, NG tube removed this shift. Diet upgraded. Pt tolerating well. Vital Signs with Trends: VSS - SBP 140's - 160's, HR tachy in 100's. O2, liter flow/saturations: 2L NC Pain management (acute vs. chronic): Tylenol x1 Neuro/Mental Status: A&Ox4 Cardiac Rhythm, Alarm Settings: N/A Urinary Elimination Device: Voids per BSC Urinary output greater than 30mL/hr? Yes. Date of last BM: 11/19/22 Lines/Tubes: Left wrist IV SL Activity: SBA Recommendations/questions for MD: N/A Discharge Plan (needs, disposition, etc): May DC later this shift. Initialized on 11/20/22 11:54 - END OF NOTE
== END 2022-11-20 17:28 | disposition home or self-care (01) | DRG 389 ==
LOC: ED 22:46 → MEDSUR 11-19 10:43
PROVIDERS: ADMIT Internal Medicine; ATTEND Surgery